=== PATIENT | female | born 1990 | race Two or more races ===

== ENCOUNTER 2020-01-09 07:34 | Emergency (ER) | payer OTHER, SELFPAY ==
--- NOTE | 2020-01-09 | ECG_ITS ---
Test Reason : SOB Blood Pressure : / mmHG Vent. Rate : 069 BPM Atrial Rate : 069 BPM P-R Int : 136 ms QRS Dur : 090 ms QT Int : 412 ms P-R-T Axes : 026 024 -05 degrees QTc Int : 441 ms Normal sinus rhythm Normal ECG When compared with ECG of 01-MAR-2014 09:32, No significant change was found Referred By: Shanell Camp Electronically Signed By:ESTRELLA BARTON
--- NOTE | 2020-01-09 08:01 | ED_ITS ---
HPI - Asthma General Chief Complaint: Asthma Stated Complaint: ASTHMA CHEST PAIN Time Seen by Provider: 01/09/20 08:01 Source: patient Mode of arrival: ambulatory Limitations: no limitations History of Present Illness HPI Narrative: 29 yo female with hx of asthma, anxiety, PCOS - on new medication for infertility c/o chest pain and dyspnea since yesterday, no leg pain, no prior history of this MD complaint: other (chest pain and shortness of breath) Onset (ago): day(s) (yesterday) Severity: moderate Context: other (on new infertility medication) Related Data Previous Rx's Medication Instructions Recorded nicotine 14 mg/24 hr daily 1 patch TRANSDERMAL DAILY 30 Days 01/08/20 transdermal patch #28 ea cyclobenzaprine 10 mg PO TID PRN #14 tab 01/09/20 Allergies Allergy/AdvReac Type Severity Reaction Status Date / Time Penicillins Allergy Mild RASH Verified 01/09/20 08:46 penicillin V Allergy Unknown rash Verified 10/03/19 00:00 Review of Systems Review of Systems: Constitutional : No Weight loss, No Fever, No Chills ENT/Mouth : No sore throat, No Rhinorrhea Eyes: No Eye Pain, No Swelling Cardiovascular : pos Chest Pain, pos SOB, no Dyspnea on Exertion, No Orthopnea, No Edema, No Palpitations Respiratory : No Cough, No Sputum Gastrointestinal : pos Nausea, No Vomiting, No Diarrhea, No abdominal Pain, No Hematochezia, No Melena Genitourinary : No Dysuria, No Urinary Frequency Musculoskeletal : No joint pain, No Myalgias, No Joint Swelling Skin : No Skin Lesions, No rash Neuro : No Weakness, No Numbness, No Dizziness, No Headache Psych : No Anxiety/Panic, No Depression Heme/Lymph: No Bruising, No Lymphadenopathy Endocrine : No Polyuria, No Polydipsia All other systems reviewed and are negative [facility] Past Medical History Medical History (Updated 01/09/20 @ 09:22 by Shanell Camp DO) Anxiety Asthma PCOS (polycystic ovarian syndrome) Social History Social History (Updated 01/09/20 @ 08:07 by Shanell Cmap DO) Alcohol intake: never Smoking Status: Current every day smoker Use of substances other than those prescribed or required for medical reasons: No Advance Directives: No Advance Directives Information Provided: Yes Physical Exam Vital Signs and I&O and Narrative: Vital Signs and I&O: Vital Signs Temp 98.2 F 01/09/20 08:26 Pulse 73 01/09/20 08:26 Resp 16 01/09/20 08:26 BP 108/71 01/09/20 08:26 Pulse Ox 98 01/09/20 08:26 Intake & Output 01/08/20 01/09/20 01/09/20 18:59 06:59 18:59 Weight 90.718 kg Body Mass Index 35.4 Appearance: Alert. Oriented X3. No acute distress. mild anxiety Eyes: Pupils equal, round and reactive to light. ENT: Pharynx normal. Neck: Normal inspection. Neck supple. CVS: Normal heart rate and rhythm. Pulses normal. Respiratory: No respiratory distress. Breath sounds normal. Abdomen: Soft and nontender. Skin: Skin warm and dry. Normal skin color. Normal skin turgor. Extremities: No lower extremity edema. No lower extremity edema. Neuro: Oriented X 3. No motor deficit. No sensory deficit. Course Course Course Narrative: normal EKG, CXR, negative ddimer, negative troponin, stable for DC MDM - Asthma MDM Narrative Medical decision making narrative: 29 yo female with asthma, anxiety, PCOS on new infertility medication here with chest pain and shortness of breath since yesterday, lungs clear, no fevers no cough, will need EKG, CXR, troponin x 1, ddimer - PO ativan for anxiety, dispo per results and findings Lab Data Result diagrams: 01/09/20 08:40 01/09/20 08:40 Labs: Lab Results 01/09/20 01/09/20 01/09/20 Range/Units 08:40 08:40 08:40 WBC 10.9 H (4.8-10.8) X10*3/uL RBC 4.76 (4.20-5.50) X10*6/uL Hgb 14.0 (12.0-16.0) g/dl Hct 40.9 (37-47) % MCV 85.9 (80-98) fL MCH 29.4 (27.0-33.0) pg MCHC 34.2 (31.0-35.0) g/dl RDW 13.5 (11.0-16.0) % Plt Count 226 (160-400) X10*3/uL MPV 11.5 (9.4-12.3) fL Immature Gran % (Auto) 0.3 (0.0-0.4) % Neut % (Auto) 69.8 (45-73) % Lymph % (Auto) 19.2 L (20-40) % Esmeralda % (Auto) 7.2 (2-11) % Eos % (Auto) 3.2 (0-4) % Baso % (Auto) 0.3 (0-2) % Neut # (Auto) 7.6 (2.0-8.3) X10*3/uL Lymph # (Auto) 2.1 (1.2-4.9) X10*3/uL Esmeralda # (Auto) 0.8 (0.1-1.2) X10*3/uL Eos # (Auto) 0.4 (0.0-0.4) X10*3/uL Baso # (Auto) 0.0 (0.0-0.2) X10*3/uL Abs Immat Gran (auto) 0.03 (0.00-0.03) X10*3/uL Absolute Nucleated RBC 0.000 (0.0-0.012) X10*3/uL Nucleated RBC % (auto) 0.0 (0.0-0.2) /100WBC D-Dimer < 200 NG/ML Sodium 139 (135-145) mmol/L Potassium 3.9 (3.3-5.1) mmol/l Chloride 106 (96-108) mmol/L Carbon Dioxide 24 (22-29) mmol/L Anion Gap 13 (12-20) BUN 8 L (9-16) mg/dL Creatinine 0.77 (0.5-1.4) mg/dL Estim Creat Clear Calc 114.2 Estimated GFR > 60 Random Glucose 137 H (60-115) mg/dL Calcium 9.2 (8.4-10.2) mg/dL Magnesium 1.9 (1.6-2.6) mg/dL Total Bilirubin 0.5 (0.0-1.0) mg/dL Direct Bilirubin 0.2 (0.0-0.5) mg/dL AST 30 (5-31) U/L ALT 80 H (0-31) U/L Alkaline Phosphatase 69 (39-117) U/L Troponin I High Sens (<3.5-17.0) ng/L Total Protein 6.3 L (6.5-8.0) g/dL Albumin 4.2 (3.5-5.0) g/dL Lipase 19 (8-78) U/L 01/09/20 Range/Units 08:40 WBC (4.8-10.8) X10*3/uL RBC (4.20-5.50) X10*6/uL Hgb (12.0-16.0) g/dl Hct (37-47) % MCV (80-98) fL MCH (27.0-33.0) pg MCHC (31.0-35.0) g/dl RDW (11.0-16.0) % Plt Count (160-400) X10*3/uL MPV (9.4-12.3) fL Immature Gran % (Auto) (0.0-0.4) % Neut % (Auto) (45-73) % Lymph % (Auto) (20-40) % Esmeralda % (Auto) (2-11) % Eos % (Auto) (0-4) % Baso % (Auto) (0-2) % Neut # (Auto) (2.0-8.3) X10*3/uL Lymph # (Auto) (1.2-4.9) X10*3/uL Esmeralda # (Auto) (0.1-1.2) X10*3/uL Eos # (Auto) (0.0-0.4) X10*3/uL Baso # (Auto) (0.0-0.2) X10*3/uL Abs Immat Gran (auto) (0.00-0.03) X10*3/uL Absolute Nucleated RBC (0.0-0.012) X10*3/uL Nucleated RBC % (auto) (0.0-0.2) /100WBC D-Dimer NG/ML Sodium (135-145) mmol/L Potassium (3.3-5.1) mmol/l Chloride (96-108) mmol/L Carbon Dioxide (22-29) mmol/L Anion Gap (12-20) BUN (9-16) mg/dL Creatinine (0.5-1.4) mg/dL Estim Creat Clear Calc Estimated GFR Random Glucose (60-115) mg/dL Calcium (8.4-10.2) mg/dL Magnesium (1.6-2.6) mg/dL Total Bilirubin (0.0-1.0) mg/dL Direct Bilirubin (0.0-0.5) mg/dL AST (5-31) U/L ALT (0-31) U/L Alkaline Phosphatase (39-117) U/L Troponin I High Sens < 3.5 (<3.5-17.0) ng/L Total Protein (6.5-8.0) g/dL Albumin (3.5-5.0) g/dL Lipase (8-78) U/L ECG Data Attestation: I personally reviewed and interpreted this ECG as follows: ECG interpretation date: 01/09/20 ECG interpretation time: 08:59 Interpretation: Rate: 69 Rhythm: NSR [place]: normal Normal P waves. Normal VALERIA. Normal QRS complex. ST T wave : normal qTC:normal prior studies: none The study has been interpreted contemporaneously by me. . Discharge Plan Discharge Clinical Impression: Chest pain Qualifiers: Chest pain type: unspecified Qualified Code(s): R07.9 - Chest pain, unspecified Patient Disposition: Home, Self-Care Instructions: Chest Pain (ED) Prescriptions: New cyclobenzaprine 10 mg tablet 10 mg PO TID PRN (Reason: muscle spasm) Qty: 14 RF: 0 No Action nicotine [Nicoderm CQ] 14 mg/24 hr patch 24 hour 1 patch transdermal DAILY 30 Days Qty: 28 RF: 1 Referrals: Bethanie Kline MD [Primary Care Provider] - 2 days (if not better) Stand Alone Forms: Work/School Release
--- NOTE | 2020-01-09 08:01 | XR_ITS ---
EXAMINATION: XR CHEST CLINICAL INFORMATION: Chest pain COMPARISON: 03/04/2014 TECHNIQUE: Frontal view of the chest was obtained. FINDINGS: No significant abnormality is noted involving the heart, lungs, mediastinum, bony thorax or soft tissues. IMPRESSION: No acute cardiopulmonary process.
[2020-01-09 08:26] VITALS: BP 108/71; PULSE 73; RESP 16; TEMP 36.8; O2SAT 98; BMI 35.4
[2020-01-09 08:44] LABS: MANUAL DIFF FLAG NO
[2020-01-09 08:47] LABS: Basophils Percent Auto 0.3 % (0-2); Eosinophils Absolute Auto 0.4 X10*3/uL (0.0-0.4); Eosinophils Percent Auto 3.2 % (0-4); Hematocrit 40.9 % (37-47); Imm Gran Abs Auto 0.03 X10*3/uL (0.00-0.03); Imm Gran Pct Auto 0.3 % (0.0-0.4); Lymphocytes Absolute Auto 2.1 X10*3/uL (1.2-4.9); Lymphocytes Percent Auto 19.2 % (20-40); Mean Corpuscular HGB Conc 34.2 g/dl (31.0-35.0); Mean Corpuscular Hemoglobin 29.4 pg (27.0-33.0); Mean Corpuscular Volume 85.9 fL (80-98); Mean Platelet Volume 11.5 fL (9.4-12.3); Monocytes Absolute Auto 0.8 X10*3/uL (0.1-1.2); Monocytes Percent Auto 7.2 % (2-11); Neutrophils Absolute Auto 7.6 X10*3/uL (2.0-8.3); Neutrophils Percent Auto 69.8 % (45-73); Platelet Count 226 X10*3/uL (160-400); Red Blood Count 4.76 X10*6/uL (4.20-5.50); Red Cell Distribution Width 13.5 % (11.0-16.0); White Blood Count 10.9 X10*3/uL (4.8-10.8)
[2020-01-09] MEDS: LORazepam 1 MG TABLET PO (08:47)
[2020-01-09 08:58] LABS: D Dimer < 200 NG/ML
[2020-01-09 09:12] LABS: Alanine Aminotransferase 80 U/L (0-31); Albumin Level 4.2 g/dL (3.5-5.0); Alkaline Phosphatase 69 U/L (39-117); Anion Gap 13 (12-20); Aspartate Amino Transferase 30 U/L (5-31); Bilirubin Direct 0.2 mg/dL (0.0-0.5); Bilirubin Total 0.5 mg/dL (0.0-1.0); Blood Urea Nitrogen 8 mg/dL (9-16); Calcium 9.2 mg/dL (8.4-10.2); Carbon Dioxide 24 mmol/L (22-29); Chloride 106 mmol/L (96-108); Creatinine Clr Calc Pharmacy 114.2; Estimated Glomerular Filt Rate > 60; Glucose Random 137 mg/dL (60-115); Lipase 19 U/L (8-78); Magnesium 1.9 mg/dL (1.6-2.6); Potassium 3.9 mmol/l (3.3-5.1); Sodium 139 mmol/L (135-145); Total Protein 6.3 g/dL (6.5-8.0)
[2020-01-09 09:18] LABS: Troponin-I High Sensitivity < 3.5 ng/L (<3.5-17.0)
== END 2020-01-09 10:17 | disposition home or self-care (01) ==
PROVIDERS: Emergency Provider Emergency Medicine; PCP Internal Medicine
DX: R07.9 Chest pain, unspecified (principal); F41.9 Anxiety disorder, unspecified; F43.0 Acute stress reaction; J45.909 Unspecified asthma, uncomplicated; Z79.899 Other long term (current) drug therapy; F17.200 Nicotine dependence, unspecified, uncomplicated; Z71.6 Tobacco abuse counseling
CPT/HCPCS: 36415; 71045; 80048; 80076; 83690; 83735; 84484; 85025; 85379; 93005; 93010; 99283; 99284

== ENCOUNTER → 2020-04-02 08:27 | Outpatient (BNVA) | payer OTHER, SELFPAY | PROVIDERS: PCP Internal Medicine; Visit Provider Physician Assistant | DX: Z76.89 Persons encountering health services in other specified circumstances (principal) ==

== ENCOUNTER 2020-04-09 14:04 | Outpatient (REF) | payer OTHER, SELFPAY ==
[2020-04-09 16:36] LABS: Basophils Absolute Auto 0.1 X10*3/uL (0.0-0.2); Basophils Percent Auto 0.9 % (0-2); Eosinophils Absolute Auto 0.3 X10*3/uL (0.0-0.4); Hemoglobin 14.7 g/dl (12.0-16.0); Imm Gran Abs Auto 0.03 X10*3/uL (0.00-0.03); Imm Gran Pct Auto 0.4 % (0.0-0.4); Lymphocytes Absolute Auto 2.8 X10*3/uL (1.2-4.9); Lymphocytes Percent Auto 35.5 % (20-40); Mean Corpuscular HGB Conc 33.4 g/dl (31.0-35.0); Mean Corpuscular Hemoglobin 28.5 pg (27.0-33.0); Mean Corpuscular Volume 85.4 fL (80-98); Mean Platelet Volume 12.8 fL (9.4-12.3); Monocytes Absolute Auto 0.5 X10*3/uL (0.1-1.2); Monocytes Percent Auto 6.3 % (2-11); Neutrophils Absolute Auto 4.2 X10*3/uL (2.0-8.3); Neutrophils Percent Auto 52.9 % (45-73); Platelet Count 241 X10*3/uL (160-400); Red Blood Count 5.15 X10*6/uL (4.20-5.50); Red Cell Distribution Width 12.9 % (11.0-16.0)
[2020-04-09 16:38] LABS: MANUAL DIFF FLAG NO
[2020-04-09 16:53] LABS: Alanine Aminotransferase 123 U/L (0-31); Albumin Level 4.5 g/dL (3.5-5.0); Alkaline Phosphatase 72 U/L (39-117); Aspartate Amino Transferase 67 U/L (5-31); Bilirubin Direct 0.2 mg/dL (0.0-0.5); Bilirubin Total 0.3 mg/dL (0.0-1.0); Total Protein 6.9 g/dL (6.5-8.0)
[2020-04-09 17:15] LABS: TSH reflex Free T4 1.18 mIU/mL (0.32-4.0)
[2020-04-09 17:29] LABS: Erythrocyte Sedimentation Rate 2 MM/HR (0-20)
[2020-04-12 16:27] LABS: Vitamin D 25-OH, D2 20 ng/mL; Vitamin D 25-OH, D3 10 ng/mL; Vitamin D 25-OH, Total 30 ng/mL (30-100)
== END 2020-04-09 14:05 | disposition home or self-care (01) ==
LOC: HO.HMGCLDS 14:04
PROVIDERS: PCP Internal Medicine; Visit Provider Internal Medicine
DX: E55.9 Vitamin D deficiency, unspecified (principal); E66.9 Obesity, unspecified; R53.83 Other fatigue
CPT/HCPCS: 36415; 80076; 82306; 84443; 85025; 85652

== ENCOUNTER 2020-04-25 12:38 | Outpatient (REF) | payer OTHER, SELFPAY ==
--- NOTE | 2020-04-25 12:40 | US_ITS ---
EXAMINATION: US ABDOMEN COMPLETE CLINICAL INFORMATION: Elevated LFTs. COMPARISON: CT abdomen and pelvis 07/27/2015 TECHNIQUE: Real-time imaging of the abdominal viscera. FINDINGS: PANCREAS: Normal. ABDOMINAL AORTA: The proximal, mid, and distal segments are normal in caliber. INFERIOR VENA CAVA: Visualized portions are normal. LIVER: Mildly prominent measuring up to 19.3 cm. The liver contour is normal. There is diffuse increased liver parenchymal echogenicity, consistent with hepatic steatosis. Focal fatty sparing adjacent to the gallbladder. No focal hepatic lesion. There is no intrahepatic biliary duct dilatation seen. GALLBLADDER: Normal. The gallbladder is physiologically distended without evidence of stones, sludge, polyps, wall thickening or pericholecystic fluid. COMMON BILE DUCT: Normal in caliber measuring 0.4 cm in diameter. RIGHT KIDNEY: Unremarkable. No hydronephrosis. No renal calculi or focal parenchymal lesions. The kidney measures 11.9 cm in maximum dimension. LEFT KIDNEY: Mildly lobulated contour. No hydronephrosis. No renal calculi or focal parenchymal lesions. The kidney measures 11.7 cm in maximum dimension. SPLEEN: Mildly lobulated contour. The spleen measures 13.4 cm in maximum dimension. FREE FLUID: None. US/US abdomen complete IMPRESSION: Hepatic steatosis with mild hepatomegaly. No hepatic parenchymal lesion or biliary ductal dilatation. Otherwise unremarkable examination.
== END 2020-04-25 12:39 | disposition home or self-care (01) ==
LOC: HO.US 12:38
PROVIDERS: PCP Internal Medicine; Visit Provider Internal Medicine
DX: R79.89 Other specified abnormal findings of blood chemistry (principal)
CPT/HCPCS: 76700

== ENCOUNTER → 2020-04-30 10:41 | Outpatient (BNVA) | payer OTHER, SELFPAY | PROVIDERS: PCP Internal Medicine; Visit Provider Nurse Practitioner Family ==

== ENCOUNTER → 2020-05-02 08:11 | Outpatient (BNVA) | payer OTHER, SELFPAY | PROVIDERS: PCP Internal Medicine; Visit Provider Physician Assistant ==

== ENCOUNTER → 2020-05-14 13:51 | Outpatient (REF) | payer OTHER, SELFPAY | LOC: HO.SL 13:51 | PROVIDERS: PCP Internal Medicine; Visit Provider Nurse Practitioner Family | DX: R06.83 Snoring (principal); G47.9 Sleep disorder, unspecified; E66.9 Obesity, unspecified | CPT/HCPCS: 95806 ==

== ENCOUNTER → 2020-05-15 08:21 | Outpatient (BNVA) | payer OTHER, SELFPAY | PROVIDERS: PCP Internal Medicine; Visit Provider Physician Assistant ==

== ENCOUNTER → 2020-07-09 10:54 | Outpatient (BNVA) | payer OTHER, SELFPAY | PROVIDERS: PCP Internal Medicine; Visit Provider Nurse Practitioner Family ==

== ENCOUNTER 2020-09-16 11:46 | Outpatient (REF) | payer OTHER, SELFPAY ==
--- NOTE | ~2020-09-16 | XR_ITS ---
EXAMINATION: XR CERVICAL SPINE CLINICAL INFORMATION: Neck pain COMPARISON: None TECHNIQUE: 3 views of the cervical spine were obtained. FINDINGS: There are no prevertebral soft tissue or bony abnormalities demonstrated. No compression fractures or subluxations are identified. Alignment is maintained at the atlanto-axial articulation. The disc spaces are preserved. No endplate changes are seen. The prevertebral soft tissues are normal. The foramina are patent. There are bilateral C7 cervical ribs. XR/XR cervical spine 3V IMPRESSION: Bilateral C7 cervical ribs. No visible acute fracture or dislocation.
[2020-09-16 14:27] LABS: Alanine Aminotransferase 59 U/L (0-31); Albumin Level 4.4 g/dL (3.5-5.0); Alkaline Phosphatase 74 U/L (39-117); Anion Gap 14 (12-20); Aspartate Amino Transferase 28 U/L (5-31); Bilirubin Total 0.5 mg/dL (0.0-1.0); Blood Urea Nitrogen 11 mg/dL (9-16); Calcium 9.5 mg/dL (8.4-10.2); Carbon Dioxide 22 mmol/L (22-29); Chloride 109 mmol/L (96-108); Cholesterol 155 mg/dL; Estimated Glomerular Filt Rate > 60; Glucose Fasting 113 mg/dL (60-99); HDL Cholesterol 37 mg/dL; Iron 37 mcg/dL (30-160); LDL Cholesterol Calculated 96 mg/dl; Percent Iron Saturation 10 % (15-50); Potassium 4.5 mmol/L (3.3-5.1); Sodium 140 mmol/L (135-145); Total Iron Binding Capacity 367 mcg/dL (228-428); Total Protein 6.5 g/dL (6.5-8.0); Triglycerides 113 mg/dL; Unsaturated Iron Binding 330 ug/dL
[2020-09-16 14:40] LABS: TSH reflex Free T4 0.88 uIU/mL (0.32-4.0)
[2020-09-16 14:47] LABS: Ferritin 59 ng/mL (10-122)
[2020-09-16 15:17] LABS: Folate 9.7 ng/mL (> or = 4.0); Vitamin B12 366 pg/mL (200-900)
[2020-09-18 13:57] LABS: Transferrin 291 mg/dL (188-341)
[2020-09-20 17:02] LABS: Vitamin D 25-OH, D2 10 ng/mL; Vitamin D 25-OH, D3 22 ng/mL; Vitamin D 25-OH, Total 32 ng/mL (30-100)
== END 2020-09-16 11:47 | disposition home or self-care (01) ==
LOC: HO.HMGCX 11:46
PROVIDERS: PCP Internal Medicine; Visit Provider Nurse Practitioner Family
DX: M54.2 Cervicalgia (principal); G25.81 Restless legs syndrome; R20.2 Paresthesia of skin; E55.9 Vitamin D deficiency, unspecified; E66.9 Obesity, unspecified; F41.9 Anxiety disorder, unspecified; G44.89 Other headache syndrome; J45.40 Moderate persistent asthma, uncomplicated; R12 Heartburn; R42 Dizziness and giddiness; R53.83 Other fatigue; R79.89 Other specified abnormal findings of blood chemistry
CPT/HCPCS: 36415; 72040; 80053; 80061; 82306; 82607; 82728; 82746; 83540; 84443; 84466

== ENCOUNTER → 2020-10-15 09:10 | Outpatient (BNVA) | payer OTHER, SELFPAY | PROVIDERS: PCP Internal Medicine; Visit Provider Nurse Practitioner Family ==

== ENCOUNTER 2020-11-12 14:07 | Emergency (ER) | payer OTHER, SELFPAY ==
--- NOTE | ~2020-11-12 | XR_ITS ---
EXAMINATION: XR CHEST CLINICAL INFORMATION: Shortness of breath COMPARISON: January 09, 2020 TECHNIQUE: 2 views of the chest were obtained. FINDINGS: No significant abnormality is noted involving the heart, lungs, mediastinum, bony thorax or soft tissues. XR/XR chest 2V IMPRESSION: No acute disease.
[2020-11-12 16:16] VITALS: BP 116/71; PULSE 62; RESP 20; TEMP 36.8; O2SAT 95; BMI 35.7
[2020-11-12 17:13] LABS: MANUAL DIFF FLAG NO
[2020-11-12 17:18] LABS: Basophils Absolute Auto 0.1 X10*3/uL (0.0-0.2); Basophils Percent Auto 0.5 % (0-2); Eosinophils Absolute Auto 0.2 X10*3/uL (0.0-0.4); Eosinophils Percent Auto 1.7 % (0-4); Hematocrit 44.4 % (37-47); Hemoglobin 14.9 g/dl (12.0-16.0); Imm Gran Abs Auto 0.04 X10*3/uL (0.00-0.03); Imm Gran Pct Auto 0.4 % (0.0-0.4); Lymphocytes Absolute Auto 1.2 X10*3/uL (1.2-4.9); Lymphocytes Percent Auto 12.2 % (20-40); Mean Corpuscular HGB Conc 33.6 g/dl (31.0-35.0); Mean Corpuscular Hemoglobin 28.2 pg (27.0-33.0); Mean Corpuscular Volume 84.1 fL (80-98); Mean Platelet Volume 12.3 fL (9.4-12.3); Monocytes Absolute Auto 0.3 X10*3/uL (0.1-1.2); Monocytes Percent Auto 2.8 % (2-11); Neutrophils Absolute Auto 8.3 X10*3/uL (2.0-8.3); Neutrophils Percent Auto 82.4 % (45-73); Platelet Count 248 X10*3/uL (160-400); Red Blood Count 5.28 X10*6/uL (4.20-5.50); Red Cell Distribution Width 13.6 % (11.0-16.0); White Blood Count 10.1 X10*3/uL (4.8-10.8)
[2020-11-12 17:55] LABS: Anion Gap 13 (12-20); Blood Urea Nitrogen 6 mg/dL (9-16); Carbon Dioxide 25 mmol/L (22-29); Chloride 106 mmol/L (96-108); Creatinine Clr Calc Pharmacy 109.5; Estimated Glomerular Filt Rate > 60; Glucose Random 135 mg/dL (60-115); Potassium 4.7 mmol/L (3.3-5.1); Sodium 139 mmol/L (135-145)
[2020-11-12 20:00] VITALS: BP 107/72; PULSE 77; RESP 16; TEMP 37.1; O2SAT 95
--- NOTE | 2020-11-12 20:14 | ED_ITS ---
HPI - Asthma General Chief Complaint: Asthma Stated Complaint: asthma Time Seen by Provider: 11/12/20 20:13 Source: patient Mode of arrival: ambulatory Limitations: no limitations History of Present Illness HPI Narrative: 30-year-old female came in for evaluation for asthma exacerbation. Patient's symptoms started 2 days ago after she was exposed to her sign with a minor upper respiratory symptoms, patient seen yesterday at an urgent care and she was prescribed a course of prednisone, patient stated that she has been having increase in productive cough with clear sputum. Patient is a smoker, no antibiotic. Patient decline repeat testing for COVID/flu/RSV patient was just tested yesterday at the urgent care, patient also has been vaccinated with COVID, patient will find out about her test tomorrow. Related Data Previous Rx's Medication Instructions Recorded cyclobenzaprine 10 mg tablet 10 mg PO TID PRN #14 tab 01/09/20 albuterol sulfate 90 mcg/actuation 2 puff INHALATION Q6H PRN 30 Days 03/26/20 aerosol inhaler (ProAir HFA) #18 g omeprazole 20 mg capsule,delayed 20 mg PO DAILY 90 Days #90 cap 04/09/20 release buspirone 5 mg tablet 5 mg PO BID #60 tab 04/25/20 fluticasone furoate 200 1 inh INHALATION DAILY 30 Days #28 09/11/20 mcg-vilanterol 25 mcg/dose ea inhalation powder (Breo Ellipta) ascorbic acid (vitamin C) 250 mg 250 mg PO DAILY 30 Days #30 tab 09/17/20 tablet docusate sodium 100 mg capsule 100 mg PO BID PRN 30 Days #60 cap 09/17/20 (Colace) ferrous sulfate 325 mg (65 mg 325 mg PO DAILY 30 Days #30 tab 09/17/20 iron) tablet (Feosol) ProAir HFA 90 mcg/actuation 1 inh INHALATION QID PRN 30 Days 10/11/20 aerosol inhaler (albuterol sulfate) #8.5 g NS cholecalciferol (vitamin D3) 25 25 mcg PO DAILY 90 Days #90 cap 10/31/20 mcg (1,000 unit) capsule albuterol sulfate 2.5 mg INHALATION QID PRN #75 ml 11/12/20 azithromycin 250 mg tablet See Rx Instructions .ROUTE 11/12/20 (Zithromax Z-Bryan) .COMPLEX #6 tab Allergies Allergy/AdvReac Type Severity Reaction Status Date / Time Penicillins Allergy Mild RASH Verified 09/11/20 14:48 penicillin V Allergy Unknown rash Verified 09/11/20 14:48 Review of Systems Review of Systems: All other systems are reviewed and are negative Constitutional: Reports as per HPI and Reports no additional constitutional complaints Eyes: Reports as per HPI and Reports no additional eye complaints Reports system reviewed and no additional complaints, except as documented Cardiovascular: Reports as per HPI and Reports no additional cardiovascular complaints Respiratory: Reports as per HPI and Reports no additional respiratory complaints Gastrointestinal: Reports as per HPI and Reports no additional gastrointestinal complaints Genitourinary: Reports no additional female genitourinary complaints Musculoskeletal: Reports no additional musculoskeletal complaints Skin/Breast: Reports system reviewed and no additional complaints, except as docu Psychiatric: Reports no additional psychiatric complaints Endocrine: Reports no additional endocrine complaints Hematologic/Lymphatic: Reports no additional hematologic/lymphatic complaints Allergic/Immunologic: Reports no additional allergic/immunologic complaints Reports system reviewed and no additional complaints, except as documented and Reports Abnormal speech present [facility] Past Medical History Medical History Anxiety Asthma BMI 35.0-35.9,adult Obesity PCOS (polycystic ovarian syndrome) Tired Umbilical hernia Vitamin D deficiency Surgical History H/O cervical polypectomy No pertinent past surgical history Family History Family History Father Unknown family medical history Mother Internal bleeding Maternal Grandmother No problems noted. Maternal Grandfather No problems noted. Paternal Grandfather No problems noted. Paternal Grandmother No problems noted. Sister Cervical cancer Social History Social History Alcohol intake: current Alcohol intake frequency: does not drink Cigarettes Per Day: 11 Years Smoked: 10 Advance Directives: No Advance Directives Information Provided: Yes Patient : No Physical Exam Vital Signs: Vital Signs: Last Vital Signs Temp 98.2 F 11/12/20 16:16 Pulse 62 11/12/20 16:16 Resp 20 11/12/20 16:16 BP 116/71 11/12/20 16:16 Pulse Ox 95 11/12/20 16:16 Body Mass Index 35.7 Vital signs have been reviewed as appeared to be correct. Blood pressure normal. Heart rate normal. Respiration rate normal. Temperature normal. Oxygen saturation normal. Appearance: Alert. Oriented X3. No acute distress. Head: Normal external exam. Normocephalic. Atraumatic. No Jesus signs noted. No raccoon eyes noted Eyes: PERRLA. EOMI. Conjunctiva and sclera normal. Eyelids normal. ENT: TM's Normal. Pharynx normal. Uvula midline. Moist mucous membranes. No trismus noted. No drooling noted. No muffled voice noted. Neck: Normal inspection. Neck supple. FROM. No adenopathy. Thyroid Normal. No meningeal signs. No neck mass noted. CVS: Normal heart rate and rhythm. Heart sound normal. No murmurs noted. Pulses normal throughout. Respiratory: No respiratory distress. Painless inspiration. Breath sounds normal. Mild diffuse expiratory wheezing, prolonged inspiration, nontender. No accessory muscle usage noted or decreased air movement noted. Abdomen: Soft and nontender. Bowel sounds normal in all 4 quadrants. No distention noted. No organomegaly noted. No visible injury noted. Back: No CVA tenderness. Full range of motion noted. Skin: Skin warm and dry. Normal skin color. Normal skin turgor. No rashes/lesions/lacerations noted. Extremities: No lower extremity edema. Extremities exhibit normal range of motion. Extremities nontender. Neuro: Oriented X 3. Cranial nerve exam: II-XII are grossly intact No motor deficit. No sensory deficit. Reflexes normal. Course Course Course Narrative: 30-year-old female history of asthma, here today for not improving despite using bronchodilator, patient was just started today on prednisone, patient documented increase productive green sputum and patient is a smoker. With Ricardo yusuf, to the prednisone and albuterol and follow up with PCP. MDM - Asthma Lab Data Attestation: I reviewed the patient's lab results. Result diagrams: 11/12/20 17:05 11/12/20 17:04 Labs: Lab Results 11/12/20 11/12/20 Range/Units 17:04 17:05 WBC 10.1 (4.8-10.8) X10*3/uL RBC 5.28 (4.20-5.50) X10*6/uL Hgb 14.9 (12.0-16.0) g/dl Hct 44.4 (37-47) % MCV 84.1 (80-98) fL MCH 28.2 (27.0-33.0) pg MCHC 33.6 (31.0-35.0) g/dl RDW 13.6 (11.0-16.0) % Plt Count 248 (160-400) X10*3/uL MPV 12.3 (9.4-12.3) fL Immature Gran % (Auto) 0.4 (0.0-0.4) % Neut % (Auto) 82.4 H (45-73) % Lymph % (Auto) 12.2 L (20-40) % Love % (Auto) 2.8 (2-11) % Eos % (Auto) 1.7 (0-4) % Baso % (Auto) 0.5 (0-2) % Lymph # (Auto) 1.2 (1.2-4.9) X10*3/uL Love # (Auto) 0.3 (0.1-1.2) X10*3/uL Eos # (Auto) 0.2 (0.0-0.4) X10*3/uL Baso # (Auto) 0.1 (0.0-0.2) X10*3/uL Abs Immat Gran (auto) 0.04 H (0.00-0.03) X10*3/uL Absolute Neuts (auto) 8.3 (2.0-8.3) X10*3/uL Absolute Nucleated RBC 0.000 (0.0-0.012) X10*3/uL Nucleated RBC % (auto) 0.0 (0.0-0.2) /100WBC Sodium 139 (135-145) mmol/L Potassium 4.7 (3.3-5.1) mmol/L Chloride 106 (96-108) mmol/L Carbon Dioxide 25 (22-29) mmol/L Anion Gap 13 (12-20) BUN 6 L (9-16) mg/dL Creatinine 0.80 (0.5-1.4) mg/dL Estim Creat Clear Calc 109.5 Estimated GFR > 60 Random Glucose 135 H (60-115) mg/dL Calcium 10.0 (8.4-10.2) mg/dL Imaging Data Chest x-ray: Radiologist's impression: No acute disease. Discharge Plan Discharge Clinical Impression: Asthma exacerbation Qualifiers: Asthma severity: moderate Asthma persistence: unspecified Qualified Code(s): J45.901 - Unspecified asthma with (acute) exacerbation Patient Disposition: Home, Self-Care Instructions: Bronchospasm (ED) Prescriptions: New azithromycin [Zithromax Z-Bryan] 250 mg tablet See Rx Instructions .ROUTE .COMPLEX Qty: 6 RF: 0 albuterol sulfate 2.5 mg /3 mL (0.083 %) solution for nebulization 2.5 mg inhalation QID PRN (Reason: shortness of breath or wheezing) Qty: 75 RF: 0 No Action albuterol sulfate [ProAir HFA] 90 mcg/actuation HFA aerosol inhaler 2 puff inhalation Q6H PRN (Reason: bronchospasm) 30 Days Qty: 18 RF: 0 buspirone 5 mg tablet 5 mg PO BID Qty: 60 RF: 2 ferrous sulfate [Feosol] 325 mg (65 mg iron) tablet 325 mg PO DAILY 30 Days Qty: 30 RF: 1 ascorbic acid (vitamin C) 250 mg tablet 250 mg PO DAILY 30 Days Qty: 30 RF: 1 docusate sodium [Colace] 100 mg capsule 100 mg PO BID PRN (Reason: constipation) 30 Days Qty: 60 RF: 1 albuterol sulfate [ProAir HFA] 90 mcg/actuation HFA aerosol inhaler 1 inh inhalation QID PRN (Reason: shortness of breath or wheezing) 30 Days Qty: 8.5 RF: 5 cholecalciferol (vitamin D3) 25 mcg (1,000 unit) capsule 25 mcg PO DAILY 90 Days Qty: 90 RF: 0 cyclobenzaprine 10 mg tablet 10 mg PO TID PRN (Reason: muscle spasm) Qty: 14 RF: 0 omeprazole 20 mg capsule,delayed release(DR/EC) 20 mg PO DAILY 90 Days Qty: 90 RF: 0 Breo Ellipta 200-25 mcg/dose blister with device 1 inh inhalation DAILY 30 Days Qty: 28 RF: 0 Referrals: Bethanie Kline MD [Primary Care Provider] - 2 days
[2020-11-12] MEDS: Albuterol Sulfate 90 MCG 8 GM INHALER 2 PUFF INHALE (20:26)
== END 2020-11-12 20:41 | disposition home or self-care (01) ==
PROVIDERS: Emergency Provider Emergency Medicine; PCP Internal Medicine
DX: J45.901 Unspecified asthma with (acute) exacerbation (principal); E66.9 Obesity, unspecified; Z68.35 Body mass index [BMI] 35.0-35.9, adult; F17.210 Nicotine dependence, cigarettes, uncomplicated
CPT/HCPCS: 36415; 71046; 80048; 85025; 99284

== ENCOUNTER 2021-03-25 14:19 | Outpatient (REF) | payer OTHER, SELFPAY ==
--- NOTE | ~2021-03-25 | XR_ITS ---
EXAMINATION: XR HAND, LEFT CLINICAL INFORMATION: Localized swelling. Mass and lump. COMPARISON: None TECHNIQUE: PA, lateral, and oblique views of the left hand. FINDINGS: The bones and soft tissues are normal. No fracture. Alignment is anatomic. Joint spaces are maintained. No erosions or soft tissue calcifications. XR/XR hand LT min 3V IMPRESSION: Normal left hand.
== END 2021-03-25 14:20 | disposition home or self-care (01) ==
LOC: HO.HMGCX 14:19
PROVIDERS: PCP Internal Medicine; Visit Provider Internal Medicine
DX: R22.30 Localized swelling, mass and lump, unspecified upper limb (principal)
CPT/HCPCS: 73130

== ENCOUNTER 2021-07-30 14:25 | Outpatient (REF) | payer OTHER, SELFPAY ==
[2021-07-30 16:57] LABS: Glucose Fasting 104 mg/dL (60-99)
[2021-07-30 17:08] LABS: Estimated Average Glucose 134 mg/dL; Hemoglobin A1c % 6.3 %
[2021-07-30 17:27] LABS: Vitamin B12 317 pg/mL (200-900)
== END 2021-07-30 14:26 | disposition home or self-care (01) ==
LOC: HO.HMGCLDS 14:25
PROVIDERS: PCP Internal Medicine; Visit Provider Internal Medicine
DX: R73.9 Hyperglycemia, unspecified (principal); E55.9 Vitamin D deficiency, unspecified; E66.9 Obesity, unspecified; F41.9 Anxiety disorder, unspecified; R12 Heartburn; R42 Dizziness and giddiness; R53.83 Other fatigue
CPT/HCPCS: 36415; 82607; 82947; 83036

== ENCOUNTER 2021-07-30 16:04 | Outpatient (REF) | payer OTHER, SELFPAY ==
[2021-07-31 05:14] LABS: CT PCR NOT DETECTED (Not Detect.); NG PCR NOT DETECTED (Not Detect.)
[2021-07-31 15:49] LABS: BV Int Neg Control Negative (Negative); BV Int Pos Control Positive (Positive)
[2021-08-02 14:45] LABS: HPV mRNA E6/E7 rflx Not Detected (Not Detected)
== END 2021-07-30 16:05 | disposition home or self-care (01) ==
LOC: HO.LAB 16:04
PROVIDERS: Visit Provider Advanced Practice Midwife
DX: Z01.419 Encounter for gynecological examination (general) (routine) without abnormal findings (principal); Z11.51 Encounter for screening for human papillomavirus (HPV)
CPT/HCPCS: 87480; 87491; 87510; 87591; 87624; 87660; 88142

== ENCOUNTER 2022-04-23 09:18 | Outpatient (REF) | payer MEDICAID, SELFPAY ==
[2022-04-23 11:17] LABS: MANUAL DIFF FLAG NO
[2022-04-23 11:22] LABS: Basophils Absolute Auto 0.1 X10*3/uL (0.0-0.2); Basophils Percent Auto 0.6 % (0-2); Eosinophils Absolute Auto 0.4 X10*3/uL (0.0-0.4); Eosinophils Percent Auto 4.1 % (0-4); Hematocrit 44.1 % (37.0-47.0); Hemoglobin 15.1 g/dl (12.0-16.0); Imm Gran Abs Auto 0.02 X10*3/uL (0.00-0.03); Imm Gran Pct Auto 0.2 % (0.0-0.4); Lymphocytes Absolute Auto 2.6 X10*3/uL (1.2-4.9); Lymphocytes Percent Auto 31.1 % (20-40); Mean Corpuscular HGB Conc 34.2 g/dl (31.0-35.0); Mean Corpuscular Volume 87.5 fL (80.0-98.0); Mean Platelet Volume 12.5 fL (9.4-12.3); Monocytes Absolute Auto 0.6 X10*3/uL (0.1-1.2); Monocytes Percent Auto 6.6 % (2-11); Neutrophils Absolute Auto 4.8 x10*3/uL (2.0-8.3); Neutrophils Percent Auto 57.4 % (45-73); Platelet Count 274 X10*3/uL (160-400); Red Blood Count 5.04 X10*6/uL (4.20-5.50); Red Cell Distribution Width 14.2 % (11.0-16.0); White Blood Count 8.5 X10*3/uL (4.8-10.8)
[2022-04-23 11:44] LABS: Alanine Aminotransferase 62 U/L (0-31); Albumin Level 4.2 g/dL (3.5-5.0); Alkaline Phosphatase 71 U/L (39-117); Anion Gap 13 (12-20); Aspartate Amino Transferase 25 U/L (5-31); Bilirubin Total 0.7 mg/dL (0.0-1.0); Blood Urea Nitrogen 11 mg/dL (9-16); Calcium 9.5 mg/dL (8.4-10.2); Carbon Dioxide 24 mmol/L (22-29); Chloride 104 mmol/L (96-108); Estimated Glomerular Filt Rate > 60; Glucose Random 141 mg/dL (60-115); Potassium 4.2 mmol/L (3.3-5.1); Sodium 137 mmol/L (135-145); Total Protein 6.7 g/dL (6.5-8.0)
[2022-04-23 11:48] LABS: Estimated Average Glucose 126 mg/dL
[2022-04-23 12:00] LABS: TSH reflex Free T4 1.39 uIU/mL (0.32-4.0)
[2022-04-23 12:08] LABS: HBS Num1 2.72 mIU/mL (0-7.99); HBc Num1 0.08 S/CO (0.00-0.79); HBsAGNum1 0.26 S/CO (0.00-0.99); HIV AB/AG Nonreactive (Nonreactive); HIV Num 1 0.05 S/CO (0.00-0.99); Hepatitis A Antibody IgM 0.16 Index (0-0.79); Hepatitis B Core Antibody Nonreactive (Nonreactive); Hepatitis B Surface Antigen Negative (Negative); ~HepC Num1 0.06 S/CO (0.00-0.79); ~Hepatitis A Antibody IgM Nonreactive (Nonreactive); ~Hepatitis B Surface Antibody NONREACTIVE (Nonreactive); ~Hepatitis C Antibody Nonreactive (Nonreactive)
[2022-04-23 12:09] LABS: Syphilis Screen Nonreactive (Nonreactive)
[2022-04-23 12:14] LABS: Vitamin B12 329 pg/mL (200-900)
[2022-04-24 08:54] LABS: Herpes Simplex Type 1 IgG <0.90 index; Herpes Simplex Type 2 IgG 7.47 index
== END 2022-04-23 09:19 | disposition home or self-care (01) ==
LOC: HO.HMGCLDS 09:18
PROVIDERS: PCP Internal Medicine; Visit Provider Internal Medicine
DX: Z11.4 Encounter for screening for human immunodeficiency virus [HIV] (principal); Z11.3 Encounter for screening for infections with a predominantly sexual mode of transmission; R23.3 Spontaneous ecchymoses; G44.89 Other headache syndrome; J45.40 Moderate persistent asthma, uncomplicated; R20.2 Paresthesia of skin; E11.65 Type 2 diabetes mellitus with hyperglycemia
CPT/HCPCS: 36415; 80053; 82607; 83036; 84443; 85025; 86695; 86696; 86704; 86706; 86709; 86780; 86803; 87340; 87389

== ENCOUNTER 2023-08-11 08:56 | Outpatient (AMB) | payer OTHER, SELFPAY ==
[2023-08-11 09:00] VITALS: BP 122/76; PULSE 72; O2SAT 97; BMI 33.5
--- NOTE | 2023-08-11 09:00 | MHC.PC.OV ---
Vital Signs 08/11/23 09:00 Height 5 ft 3 in Weight 189 lb 6 oz BMI 33.5 BP 122/76 Blood Pressure Location Rt brachial Position Sitting Pulse 72 Pulse Source Pulse Oximeter Pulse Oximetry (%) 97 Oxygen Delivery Method Room Air Intake Visit Reasons: Annual PE Is last menstrual period known: Yes Last menstrual period: 07/11/23 Allergies penicillin V Allergy (Unknown, Verified 08/11/23 09:02) rash Medication List - Last Reconciled 08/11/23 by Bethanie Kline MD ascorbic acid (vitamin C) 250 mg PO DAILY 30 days blood sugar diagnostic ([employer] Ultra Test strips) Once a day blood-glucose meter ([employer] Ultra2 Meter) Once a day cholecalciferol (vitamin D3) 25 mcg PO DAILY 90 days fluticasone furoate-vilanterol 200-25 mcg/dose (Breo Ellipta) 1 inh inhalation DAILY 30 days lancets ([employer] Delica Lancets) Once a day metformin 500 mg PO DAILY omeprazole 20 mg PO DAILY 90 days Symbicort 160-4.5 mcg/actuation (budesonide-formoterol) 2 puffs inhalation BID 30 days NS Tobacco use date assessed: 08/11/23 Dental Screening Dental Screen Date: 08/11/23 Did you have a dental visit in the last 12 months?: No Did you have a dental problem in the last 6 months where you did not have access to dental care?: No Was dental information given to patient?: Patient has dentist HPI Annual PE HPI Details Patient is a 33-year-old female came in today after over 1 year of being seen Patient is diabetic currently taking metformin She is due for labs Patient is also due for breast exam and Pap smear, which she usually gets through OBGYN She has an appointment coming up next month Patient says that last summer she fell on her right knee and it is still painful to go up the stairs I have placed a referral to orthopedic and x-ray order also placed as a baseline Patient had COVID couple of years ago and since then she has been having difficulty smelling Also tells me that she can not breathe from her nose. On examination I also see that she has large tonsils She tells me that she has difficulty swallowing sometimes She will be evaluated by ENT specialist For her nose I have sent Flonase nasal spray and prednisone 20 mg to be taken once a day for 7 days Labs to be done today We will book a follow-up appointment in 3 weeks for difficulty smelling PFSH Medical History REMI II (cervical intraepithelial neoplasia II) REMI I (cervical intraepithelial neoplasia I) BMI 35.0-35.9,adult Umbilical hernia Obesity Tired Vitamin D deficiency Asthma PCOS (polycystic ovarian syndrome) Anxiety Surgical History H/O cervical polypectomy No pertinent past surgical history Family History Father Unknown family medical history Mother Internal bleeding Maternal Grandmother Colon cancer Maternal Grandfather Colon cancer Paternal Grandfather No problems noted. Paternal Grandmother No problems noted. Sister Cervical cancer Other Mental health disorder Substance use disorder Social History Housing: Apartment Alcohol intake: unknown Patient Tobacco Use Status: Current everyday Tobacco user Cigarettes Per Day: 6 Years Smoked: 10 e-Cigarette/Vaping Use: Never Used service: No Current occupational status: employed Cognitive needs: No Hearing needs: No Vision needs: Yes Female Reproductive History Menstrual Age of Menarche: 10 Date of last menstrual period: 07/11/23 Questionnaire PHQ-9 Over the last 2 weeks, how often have you been bothered by any of the following problems? 1. Little interest or pleasure in doing things: more than half the days 2. Feeling down, depressed, or hopeless: nearly every day 3. Trouble falling or staying asleep, or sleeping too much: more than half the days 4. Feeling tired or having little energy: more than half the days 5. Poor appetite or overeating: more than half the days 6. Feeling bad about yourself - or that you are a failure or have let yourself or your family down: more than half the days 7. Trouble concentrating on things, such as reading the newspaper or watching television: more than half the days 8. Moving or speaking so slowly that other people could have noticed. Or the opposite - being so fidgety or restless that you have been moving around a lot more than usual: several days 9. Thoughts that you would be better off or of hurting yourself in some way: not at all Total score: 16 Depression Screening Interpretation: Positive Depression Screening Follow-up: Community Mental Health Worker F/U Depression Screening Done: Yes 04692 - PHQ-9 Billing: Yes Source: Developed by Drs. Olivier Barbosa, Mary Purcell, Sandor Fair and colleagues, with an educational lamont from [employer]. Thrive Questionnaire Date Thrive assessed: 08/11/23 I am a: Patient What is your living situation today?: I have a steady place to live Within the past 12 months, did the food you bought not last and you didn't have the money to get more?: Sometimes True Within the past 12 months, did you worry whether your food would run out before you got money to buy more?: Sometimes True Do you have trouble paying for medicines?: No Do you have trouble getting transportation to medical appointments?: No Do you have trouble paying your heating and electricity bill?: No Do you have trouble taking care of your child, family member or friend?: No Do you have trouble with day-to-day activities such as bathing, preparing meals, shopping, managing finances, etc.?: No Are you currently unemployed and looking for a job?: No Are you interested in more education?: No Please select the resources that you would like help with: None Currently or been in a relationship where the following occur: no concerns reported THRIVE Score: 2 AUDIT C Alcohol Use Questionnaire (AUDIT-C) 1. How often do you have a drink containing alcohol?: Monthly or less 2. How many drinks containing alcohol do you have on a typical day when you are drinking?: 3 or 4 3. How often do you have six or more drinks on one occasion?: Less than monthly Total Score: 3 Score Reviewed/Action Taken: Yes MAURICIO-7 AMB Questionnaire MAURICIO-7 Date MAURICIO - 7 assessed: 08/11/23 Feeling nervous, anxious, or on edge: 3 = Nearly every day Not being able to stop or control worryin = Nearly every day Worrying too much about different things: 3 = Nearly every day Trouble relaxin = Nearly every day Being so restless that it is hard to sit still: 3 = Nearly every day Becoming easily annoyed or irritable: 3 = Nearly every day Feeling afraid as if something awful might happen: 3 = Nearly every day Total MAURICIO-7 score (0-4 normal; 5-9 mild; 10-14 moderate; 15-21 severe): 21 Source: Developed by Drs. Olivier Barbosa, Mary Purcell, Sandor Fair and colleagues, with an educational lamont from [employer]. MAURICIO-7 Assessment Billing MAURICIO-7 Assessment Tool: MAURICIO-7 Assessment 74053 Review of Systems Const Denies chills, Denies fever(s) and Denies headache(s) Eyes Denies blurry vision ENT Denies headache(s), Denies nasal discharge, Denies odynophagia and Denies sinus pain Card Denies chest pain at rest and Denies chest pain with activity Resp Denies cough and Denies hemoptysis GI Denies diarrhea, Denies odynophagia, Denies vomiting and Denies hematemesis Reports as per HPI Musc Denies abnormal gait Skin/Breast Reports as per HPI Neuro Denies Neuro-related abnormal movements, Denies Abnormal speech present, Denies abnormal gait, Denies headache(s) and Denies Sensory deficit (Neuro) Psych Denies mood swings and Denies paranoia Endo Reports as per HPI Justus/Lymph Reports as per HPI Aller/Immun Reports as per HPI Physical exam (Primary Care) Vital Signs: Last Vital Signs Pulse 72 08/11/23 09:00 BP 122/76 08/11/23 09:00 Pulse Ox 97 08/11/23 09:00 Oxygen Delivery Method Room Air 08/11/23 09:00 BMI result Body Mass Index 33.5 Tobacco/Smoking Status: Tobacco use Status Tobacco use date assessed 08/11/23 08/11/23 09:05 Patient Tobacco Use Status Current everyday Tobacco 08/11/23 09:05 e-Cigarette/Vaping Use Never Used 08/11/23 09:05 PHQ-9: PHQ-9 Score PHQ-9: Total score 16 08/11/23 09:31 Depression Screening Interpretation: Positive Depression Screening Follow-up: Community Mental Health Worker F/U Thrive Assessment: Date of Thrive Assessment Date Thrive assessed 08/11/23 08/11/23 09:05 Currently or been in a relationship where the following occur: no concerns reported Const General: cooperative, comfortable and no acute distress Orientation/consciousness: patient oriented x3 HENHI Other: Enlarged tonsils both sides Head: Yes normocephalic and Yes atraumatic Eyes General: appearance normal, both eyes and all related structures Pupils: Equal, round and reactive pupils present EOM: EOMs intact bilaterally Neck Neck: Yes supple and No lymphadenopathy Thyroid: Thyroid normal Lymphatic: no lymphadenopathy noted Resp Effort & Inspection: normal respiratory effort and able to speak in complete sentences Auscultation: clear to auscultation bilaterally Cardio Heart sounds: S1 normal heart sound present and S2 normal heart sound present GI Palpation (GI): Soft to palpation and nontender Auscultation: normal bowel sounds General: Yes no CVA tenderness Back/Spine/Pelvis Back: no CVA tenderness Skin General skin exam: elasticity normal and turgor normal Neuro General: patient oriented x3 and gait normal Cranial nerves: Yes Equal, round and reactive pupils present Speech: No Abnormal speech present Sensory Exam: No Sensory deficit (Neuro) Coordination: tandem gait normal and Romberg test negative Extrem General: Yes normal exam except as noted and No edema Assessment and Plan Assessment & Plan (1) Encounter for general adult medical examination with abnormal findings: Code(s): Z00.01 - Encounter for general adult medical examination with abnormal findings (2) LFT elevation: Code(s): R79.89 - Other specified abnormal findings of blood chemistry (3) Asthma, moderate persistent: Code(s): J45.40 - Moderate persistent asthma, uncomplicated Qualifiers: Asthma complication type: uncomplicated Qualified Code(s): J45.40 - Moderate persistent asthma, uncomplicated (4) Diabetes mellitus: Code(s): E11.9 - Type 2 diabetes mellitus without complications Qualifiers: Diabetes mellitus complication status: without complication Diabetes mellitus exterminator termite insulin use: without custodial use Diabetes mellitus type: type 2 Qualified Code(s): E11.9 - Type 2 diabetes mellitus without complications (5) Right knee injury: Code(s): S89.91XA - Unspecified injury of right lower leg, initial encounter Qualifiers: Encounter type: sequela Qualified Code(s): S89.91XS - Unspecified injury of right lower leg, sequela (6) Knee pain: Code(s): M25.569 - Pain in unspecified knee Qualifiers: Chronicity: chronic Laterality: right Qualified Code(s): M25.561 - Pain in right knee; G89.29 - Other chronic pain (7) Enlarged tonsils: Code(s): J35.1 - Hypertrophy of tonsils (8) Difficulty swallowing: Code(s): R13.10 - Dysphagia, unspecified Qualifiers: Dysphagia type: oropharyngeal phase Qualified Code(s): R13.12 - Dysphagia, oropharyngeal phase Plan Patient is a 33-year-old female came in today after over 1 year of being seen Patient is diabetic currently taking metformin She is due for labs Patient is also due for breast exam and Pap smear, which she usually gets through OBGYN She has an appointment coming up next month Patient says that last summer she fell on her right knee and it is still painful to go up the stairs I have placed a referral to orthopedic and x-ray order also placed as a baseline Patient had COVID couple of years ago and since then she has been having difficulty smelling Also tells me that she can not breathe from her nose. On examination I also see that she has large tonsils She tells me that she has difficulty swallowing sometimes She will be evaluated by ENT specialist For her nose I have sent Flonase nasal spray and prednisone 20 mg to be taken once a day for 7 days Asthma is stable Labs to be done today We will book a follow-up appointment in 3 weeks for difficulty smelling She tells me that June of last year she had difficulty feeling her body below her waist, she went to [facility] Emergency room, some imaging was done however she never came here to follow-up. I will retrieve that record and review, we will address that further at upcoming appointment Orders: Orders Hemoglobin A1c Today E11.9 - Type 2 diabetes mellitus without complications, J45.40 - Moderate persistent asthma, uncomplicated, R79.89 - Other specified abnormal findings of blood chemistry, Z00.01 - Encounter for general adult medical examination with abnormal findings LDL Cholesterol Direct Today E11.9 - Type 2 diabetes mellitus without complications, J45.40 - Moderate persistent asthma, uncomplicated, R79.89 - Other specified abnormal findings of blood chemistry, Z00.01 - Encounter for general adult medical examination with abnormal findings Microalbumin, Random (w Creat) Today E11.9 - Type 2 diabetes mellitus without complications, J45.40 - Moderate persistent asthma, uncomplicated, R79.89 - Other specified abnormal findings of blood chemistry, Z00.01 - Encounter for general adult medical examination with abnormal findings Complete Blood Count Auto Diff Today E11.9 - Type 2 diabetes mellitus without complications, J45.40 - Moderate persistent asthma, uncomplicated, R79.89 - Other specified abnormal findings of blood chemistry, Z00.01 - Encounter for general adult medical examination with abnormal findings Comprehensive Met. Panel Today E11.9 - Type 2 diabetes mellitus without complications, J45.40 - Moderate persistent asthma, uncomplicated, R79.89 - Other specified abnormal findings of blood chemistry, Z00.01 - Encounter for general adult medical examination with abnormal findings Referrals Ear/Nose/Throat Referral J35.1 - Hypertrophy of tonsils, R13.10 - Dysphagia, unspecified Orthopedics Referral M25.569 - Pain in unspecified knee, S89.91XA - Unspecified injury of right lower leg, initial encounter Medications: New prednisone 20 mg PO DAILY 7 tabs 0RF 7 days fluticasone propionate 50 mcg/actuation (Flonase Allergy Relief) administer into each nostril 1 spray intranasal DAILY 16 grams 0RF Coding Level of Care Code Est Pt Level 4 (10028) Est Pt Prev Care 18-39y(80193) Diagnoses Encounter for general adult medical examination with abnormal findings Z00.01 LFT elevation R79.89 Moderate persistent asthma without complication J45.40 Asthma complication type: uncomplicated Type 2 diabetes mellitus without complication, without long-term current use of insulin E11.9 Diabetes mellitus complication status: without complication Diabetes mellitus custodial insulin use: without exterminator termite use Diabetes mellitus type: type 2 Injury of right knee, sequela S89.91XS Encounter type: sequela Chronic pain of right knee M25.561; G89.29 Chronicity: chronic Laterality: right Enlarged tonsils J35.1 Oropharyngeal dysphagia R13.12 Dysphagia type: oropharyngeal phase Additional Codes MAURICIO-7 Assessment Billing - MAURICIO-7 Assessment Tool: MAURICIO-7 Assessment 09993 ([id number])
== END 2023-08-11 09:27 | disposition home or self-care (01) ==
PROVIDERS: PCP Internal Medicine; Visit Provider Internal Medicine
DX: Z00.01 Encounter for general adult medical examination with abnormal findings (principal); E11.9 Type 2 diabetes mellitus without complications; R79.89 Other specified abnormal findings of blood chemistry; J45.40 Moderate persistent asthma, uncomplicated; M25.561 Pain in right knee; S89.91XS Unspecified injury of right lower leg, sequela; G89.29 Other chronic pain; J35.1 Hypertrophy of tonsils; R13.12 Dysphagia, oropharyngeal phase
CPT/HCPCS: 99214; 99395

== ENCOUNTER 2023-08-11 09:28 | Outpatient (REF) | payer OTHER, SELFPAY ==
--- NOTE | ~2023-08-11 | XR_ITS ---
EXAMINATION: XR KNEE, RIGHT CLINICAL INFORMATION: Unspecified injury of right lower leg. COMPARISON: None available. TECHNIQUE: Four views of the right knee. FINDINGS: No fracture or joint effusion. Alignment is anatomic. Joint spaces are maintained. No abnormal soft tissue calcification. XR/XR knee RT 4V IMPRESSION: Unremarkable plain radiographs of the right knee.
[2023-08-11 13:17] LABS: MANUAL DIFF FLAG NO
[2023-08-11 13:32] LABS: Basophils Absolute Auto 0.1 X10*3/uL (0.0-0.2); Basophils Percent Auto 0.7 % (0-2); Eosinophils Absolute Auto 0.3 X10*3/uL (0.0-0.4); Eosinophils Percent Auto 3.2 % (0-4); Hematocrit 44.4 % (37.0-47.0); Hemoglobin 14.6 g/dl (12.0-16.0); Imm Gran Abs Auto 0.03 X10*3/uL (0.00-0.03); Imm Gran Pct Auto 0.3 % (0.0-0.4); Lymphocytes Absolute Auto 2.5 X10*3/uL (1.2-4.9); Lymphocytes Percent Auto 27.9 % (20-40); Mean Corpuscular HGB Conc 32.9 g/dl (31.0-35.0); Mean Corpuscular Volume 91.4 fL (80.0-98.0); Monocytes Absolute Auto 0.7 X10*3/uL (0.1-1.2); Monocytes Percent Auto 7.8 % (2-11); Neutrophils Absolute Auto 5.3 x10*3/uL (2.0-8.3); Neutrophils Percent Auto 60.1 % (45-73); Platelet Count 217 X10*3/uL (160-400); Red Blood Count 4.86 X10*6/uL (4.20-5.50); Red Cell Distribution Width 13.9 % (11.0-16.0); White Blood Count 8.8 X10*3/uL (4.8-10.8)
[2023-08-11 13:37] LABS: Estimated Average Glucose 120 mg/dL; Hemoglobin A1c % 5.8 % (<6.0)
[2023-08-11 13:56] LABS: Alanine Aminotransferase 17 U/L (0-31); Albumin Level 4.2 g/dL (3.5-5.0); Alkaline Phosphatase 60 U/L (39-117); Anion Gap 13 (12-20); Aspartate Amino Transferase 14 U/L (5-31); Bilirubin Total 0.3 mg/dL (0.0-1.0); Blood Urea Nitrogen 12 mg/dL (9-16); Calcium 9.5 mg/dL (8.4-10.2); Carbon Dioxide 25 mmol/L (22-29); Chloride 106 mmol/L (96-108); Estimated Glomerular Filt Rate > 60; Glucose Random 109 mg/dL (60-115); Potassium 4.1 mmol/L (3.3-5.1); Sodium 140 mmol/L (135-145); Total Protein 6.9 g/dL (6.5-8.0)
[2023-08-11 14:09] LABS: Creatinine Urine 204.93 mg/dL; Microalbum/Creatinine Ratio Ur 11.2 ug/mg cr (<30)
[2023-08-12 11:28] LABS: LDL Cholesterol Direct 95 mg/dL (<100)
== END 2023-08-11 09:29 | disposition home or self-care (01) ==
LOC: HO.HMGCX 09:28
PROVIDERS: PCP Internal Medicine; Visit Provider Internal Medicine
DX: Z00.01 Encounter for general adult medical examination with abnormal findings (principal); S89.91XA Unspecified injury of right lower leg, initial encounter; R79.89 Other specified abnormal findings of blood chemistry; J45.40 Moderate persistent asthma, uncomplicated; E11.9 Type 2 diabetes mellitus without complications; M25.569 Pain in unspecified knee; X58.XXXA Exposure to other specified factors, initial encounter; Y93.9 Activity, unspecified; Y92.9 Unspecified place or not applicable; Y99.9 Unspecified external cause status
CPT/HCPCS: 36415; 73564; 80053; 82043; 82570; 83036; 83721; 85025

== ENCOUNTER 2023-08-24 13:41 | Outpatient (AMB) | payer OTHER, SELFPAY ==
--- NOTE | 2023-08-24 13:44 | MHC.OFFVIS ---
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 Refinish Technician Required: No Information Interpreted: non-clinical & clinical Pediatric Anesthesiologist: Pediatric Anesthesiologist Present (Madelyn) Allergies penicillin V Allergy (Unknown, Verified 08/24/23 13:47) rash Is last menstrual period known: Yes Last menstrual period: 07/21/23 Post menopausal: No HPI Comments Details: She is a premenopausal woman presenting for annual examination. Doing well with concerns: She reports pelvic cramping pain. She denies any constipation, diarrhea, vaginal irritation, odors, or urinary symptoms. She tries to eat healthy and stays active with exercise-walking. Regular monthly menses, late for menses by 1 week urine test is negative. History of infertility, last seen at [facility] approximately 2 years ago. Currently is sexually active. STI screening offered; she accepts. Denies family history of breast or ovarian cancer. FH of colon cancer. Last pap smear 2021, negative. Last prior negative was 2018, history of REMI 1 in 2. [facility] Medical History REMI II (cervical intraepithelial neoplasia II) REMI I (cervical intraepithelial neoplasia I) BMI 35.0-35.9,adult Umbilical hernia Obesity Tired Vitamin D deficiency Asthma PCOS (polycystic ovarian syndrome) Anxiety Surgical History H/O cervical polypectomy No pertinent past surgical history Family History Father Unknown family medical history Mother Internal bleeding Maternal Grandmother Colon cancer Maternal Grandfather Colon cancer Paternal Grandfather No problems noted. Paternal Grandmother No problems noted. Sister Cervical cancer Other Mental health disorder Substance use disorder Social History Housing: Apartment Alcohol intake: unknown Patient Tobacco Use Status: Current everyday Tobacco user Cigarettes Per Day: 6 Years Smoked: 10 e-Cigarette/Vaping Use: Never Used service: No Current occupational status: employed Cognitive needs: No Hearing needs: No Vision needs: Yes Female Reproductive History Menstrual Age of Menarche: 10 Duration of menses: 3-5 days Date of last menstrual period: 07/21/23 control method: none Total pregnancies: 3 Full term: 1 Number of Living Children: 1 Ab spontaneous: 2 Date of last pap smear: 07/31/21 (negative) History of abnormal pap smear: Yes (2016 CIN2, 2016 2013 2010 ASCUS, 2015 2012 2011 2008 CIN1, 2006 HGSIL) Review of Systems Const All systems reviewed & are unremarkable except as noted in HPI and below Reports as per HPI Eyes Reports no additional complaints ENT Reports no additional complaints Card Reports no additional complaints Resp Reports no additional complaints GI Reports as per HPI and Reports no additional complaints Reports as per HPI Musc Reports no additional complaints Skin/Breast Reports as per HPI Neuro Reports no additional complaints Psych Reports no additional complaints Endo Reports no additional complaints Justus/Lymph Reports no additional complaints Aller/Immun Reports no additional complaints Physical Exam Vital Signs: Last Vital Signs BP 100/66 08/24/23 13:45 BMI result Body Mass Index 33.1 Const General: cooperative, healthy appearing, no acute distress, well developed and alert Orientation/consciousness: patient oriented x3 HEENT Head: Yes normal to inspection Eyes General: appearance normal, both eyes and all related structures Neck Neck: Yes normal visual inspection Thyroid: Thyroid normal Chest Chest palpation & inspection: normal inspection of the chest and other (no puckering, dimpling, peau de orange, retraction, discharge, masses) Breast/axilla inspection: normal inspection of the breasts Breast/axilla palpation: normal palpation of the breasts Resp Effort & Inspection: normal respiratory effort GI Inspection: Yes normal to inspection Palpation (GI): Soft to palpation Rectal Exam - Female: deferred General: Yes bladder normal to palpation External Female Exam: normal external appearance and normal appearance of the urethra Speculum Exam - Vagina: normal appearance of the vagina, normal palpation and normal vaginal discharge Speculum Exam - Cervix: normal appearance of the cervix and normal palpation Bimanual exam- vagina & uterus: normal bimanual exam, normal palpation, uterine size normal, bladder normal to palpation, normal palpation and non-tender Bimanual Exam- Adnexa, other: no masses Skin General skin exam: no rashes or lesions noted Rashes: no rashes Neuro General: patient oriented x3 Cognition (Neuro): normal cognition Extrem General: Yes normal to inspection Psych Attitude: cooperative Thought process: Normal thought process present Assessment & Plan Assessment & Plan (1) Encounter for gynecological examination (general) (routine) with abnormal findings: Code(s): Z01.411 - Encounter for gynecological examination (general) (routine) with abnormal findings Category: Medical (2) Pelvic pain: Code(s): R10.2 - Pelvic and perineal pain Category: Medical Plan Discussed: Current recommendations for pap smears per ASCCP guidelines. Breast awareness and periodic breast exams. Maintain a healthy lifestyle including a well balanced diet and routine exercise. Start vitamins. Check with insurance plan regarding coverage for infertility services, call [facility] to set up an appointment, if needing a referral please call the office in one can be sent when she finds a provider she wants to see. Options for other Services when then the area were provided. Plan pelvic ultrasound workup for pelvic pain, cervical cultures for gonorrhea chlamydia and BV panel sent today. Return to the office for test results after the ultrasound is complete. Instructions for lab work reviewed with patient today. Patient verbalizes understanding and agrees to the plan of care. She was given opportunity to ask questions and all questions were answered to the best of my ability. RTO in one year for annual primary care sales representative examination. This note is constructed using voice recognition software. While every effort has been made to ensure accuracy, control integration engineer errors may have been included. Orders: Orders CT NG by PCR Today Z11.3 - Encounter for screening for infections with a predominantly sexual mode of transmission HIV Ab/Ag Today Z20.2 - Contact with and (suspected) exposure to infections with a predominantly sexual mode of transmission Hepatitis C Antibody Reflex Today Z20.2 - Contact with and (suspected) exposure to infections with a predominantly sexual mode of transmission Bacterial Vaginosis Panel Today Z11.3 - Encounter for screening for infections with a predominantly sexual mode of transmission US pelvic and transvaginal Today R10.2 - Pelvic and perineal pain Hepatitis B Core Antibody Today Z20.2 - Contact with and (suspected) exposure to infections with a predominantly sexual mode of transmission Syphilis Screen Today Z20.2 - Contact with and (suspected) exposure to infections with a predominantly sexual mode of transmission Medications: New PNV,calcium 51-veso-cwnum acid 27 mg iron- 1 mg ( Vitamins Plus Low Iron) 1 tab PO DAILY 90 tabs 4RF Coding Level of Care Code Est Pt Prev Care 18-39y(13723) Diagnoses Encounter for gynecological examination (general) (routine) with abnormal findings Z01.411 Pelvic pain R10.2
[2023-08-24 13:45] VITALS: BP 100/66; BMI 33.1
== END 2023-08-24 14:27 | disposition home or self-care (01) ==
PROVIDERS: PCP Internal Medicine; Visit Provider Advanced Practice Midwife
DX: Z01.411 Encounter for gynecological examination (general) (routine) with abnormal findings (principal); R10.2 Pelvic and perineal pain; Z32.02 Encounter for pregnancy test, result negative
CPT/HCPCS: 99395

== ENCOUNTER 2023-08-24 13:41 | Outpatient (REF) | payer OTHER, SELFPAY ==
[2023-08-25 09:10] LABS: Bacterial Vaginosis PCR POSITIVE (Negative); Candida Group PCR NOT DETECTED (Not Detect); Candida glab krusei PCR NOT DETECTED (Not Detect); Trichomonas vaginalis PCR NOT DETECTED (Not Detect)
[2023-08-25 09:20] LABS: CT PCR NOT DETECTED (Not Detect.); NG PCR NOT DETECTED (Not Detect.)
== END 2023-08-24 13:42 | disposition home or self-care (01) ==
LOC: HO.LNP 13:41
PROVIDERS: PCP Internal Medicine; Visit Provider Advanced Practice Midwife
DX: Z01.411 Encounter for gynecological examination (general) (routine) with abnormal findings (principal); R10.2 Pelvic and perineal pain; Z20.2 Contact with and (suspected) exposure to infections with a predominantly sexual mode of transmission
CPT/HCPCS: 0352U; 0353U; 81025; 99395

== ENCOUNTER 2023-09-01 12:44 | Outpatient (REF) | payer OTHER, SELFPAY ==
--- NOTE | ~2023-09-01 | US_ITS ---
EXAMINATION: US PELVIS CLINICAL INFORMATION: Pelvic pain, last menstrual period 07/16/2023. COMPARISON: None available. TECHNIQUE: Ultrasound of the pelvis is performed using both transabdominal and transvaginal transducers along with Doppler. Transvaginal imaging is performed due to inadequate visualization transabdominally. FINDINGS: The uterus is anteverted and measures 10.1 x 5.9 x 6.9 cm. No discrete fibroids are appreciated. Endometrial thickness is 13 mm. Small amount of free fluid. Left ovary measures 3.7 x 2.5 x 2.5 cm, volume 12.1 mL and is grossly unremarkable. Right ovary measures 5.0 x 3.3 x 2.8 cm, volume 24.2 mL. A 1.8 x 1.5 x 1.5 cm complex, heterogeneous right ovarian cyst was not identified on the prior exam and may represent a corpus luteum. US/US pelvic and transvaginal IMPRESSION: 1. Double wall endometrial thickness is 13 mm. 2. Small amount of free fluid. 3. Right ovarian 1.8 cm complex thick-walled cystic lesion may represent a corpus luteum; however, correlation with clinical exam recommended for this patient with pelvic pain in order to determine further management.
[2023-09-02 09:05] LABS: HBc Num1 0.08 S/CO (0.00-0.79); HIV AB/AG Nonreactive (Nonreactive); HIV Num 1 0.05 S/CO (0.00-0.99); Hepatitis B Core Antibody Nonreactive (Nonreactive); ~HepC Num1 0.06 S/CO (0.00-0.79); ~Hepatitis C Antibody Nonreactive (Nonreactive)
[2023-09-02 09:08] LABS: Syphilis Screen Nonreactive (Nonreactive)
== END 2023-09-01 12:45 | disposition home or self-care (01) ==
LOC: HO.US 12:44
PROVIDERS: PCP Internal Medicine; Visit Provider Advanced Practice Midwife
DX: R10.2 Pelvic and perineal pain (principal); Z20.2 Contact with and (suspected) exposure to infections with a predominantly sexual mode of transmission
CPT/HCPCS: 36415; 76830; 76856; 86704; 86780; 86803; 87389

== ENCOUNTER 2023-09-14 10:07 | Outpatient (REF) | payer OTHER, SELFPAY | END 2023-09-14 10:08 | disposition home or self-care (01) | LOC: HO.HOSX 10:07 | PROVIDERS: Visit Provider Physician Assistant | DX: Z13.89 Encounter for screening for other disorder (principal) ==

== ENCOUNTER 2023-09-29 15:47 | Outpatient (AMB) | payer OTHER, SELFPAY ==
[2023-09-29 15:54] VITALS: BP 118/62; BMI 33.7
--- NOTE | 2023-09-29 15:54 | MHC.OFFVIS ---
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 Her last visit she had some irregular cycles some lower pelvic pain. She reports the pain has resolved. She did a repeat test a week after her visit and it was positive she has been seen at the [facility] for care her beta-hCGs were she reports last was ,888, she has a OB ultrasound scheduled this Wednesday at [facility]. She is planning to have her OB care at [facility]. [facility] Medical History REMI II (cervical intraepithelial neoplasia II) REMI I (cervical intraepithelial neoplasia I) BMI 35.0-35.9,adult Umbilical hernia Obesity Tired Vitamin D deficiency Asthma PCOS (polycystic ovarian syndrome) Anxiety Surgical History H/O cervical polypectomy No pertinent past surgical history Family History Father Unknown family medical history Mother Internal bleeding Maternal Grandmother Colon cancer Maternal Grandfather Colon cancer Paternal Grandfather No problems noted. Paternal Grandmother No problems noted. Sister Cervical cancer Other Mental health disorder Substance use disorder Social History Housing: Apartment Alcohol intake: unknown Patient Tobacco Use Status: Current everyday Tobacco user Cigarettes Per Day: 6 Years Smoked: 10 e-Cigarette/Vaping Use: Never Used service: No Current occupational status: employed Cognitive needs: No Hearing needs: No Vision needs: Yes Female Reproductive History Menstrual Age of Menarche: 10 Review of Systems Const All systems reviewed & are unremarkable except as noted in HPI and below Endo Reports no additional complaints Physical Exam Vital Signs: Last Vital Signs BP 118/62 09/29/23 15:54 BMI result Body Mass Index 33.7 Const General: cooperative, healthy appearing and no acute distress Psych Appearance: well kempt Attitude: cooperative Thought process: Normal thought process present Results Reviewed Results Reviewed: [address] [address] Ultrasound Report Signed Patient: Zulma Cifuentes MR#: [id number] : 1990 Acct:[id number] Age/Sex: 33 / F ADM Date: 09/01/23 Loc: HO.US Attending Dr: Lois Aguilar CNM Ordering Physician: Lois Aguliar CNM Date of Service: 09/01/23 Procedure(s): US pelvic and transvaginal Accession Number(s): [id number] cc: Bethanie Kline MD; Lois Aguilar CNM~ EXAMINATION: US PELVIS CLINICAL INFORMATION: Pelvic pain, last menstrual period 07/16/2023. COMPARISON: None available. TECHNIQUE: Ultrasound of the pelvis is performed using both transabdominal and transvaginal transducers along with Doppler. Transvaginal imaging is performed due to inadequate visualization transabdominally. FINDINGS: The uterus is anteverted and measures 10.1 x 5.9 x 6.9 cm. No discrete fibroids are appreciated. Endometrial thickness is 13 mm. Small amount of free fluid. Left ovary measures 3.7 x 2.5 x 2.5 cm, volume 12.1 mL and is grossly unremarkable. Right ovary measures 5.0 x 3.3 x 2.8 cm, volume 24.2 mL. A 1.8 x 1.5 x 1.5 cm complex, heterogeneous right ovarian cyst was not identified on the prior exam and may represent a corpus luteum. US/US pelvic and transvaginal IMPRESSION: 1. Double wall endometrial thickness is 13 mm. 2. Small amount of free fluid. 3. Right ovarian 1.8 cm complex thick-walled cystic lesion may represent a corpus luteum; however, correlation with clinical exam recommended for this patient with pelvic pain in order to determine further management. Dictated By: Trupti Aguirre MD Signed By: <Electronically signed by Trupti Aguirre MD in OV> 09/06/23 1017 DD/ 1312 TD/TT: Relay Checker: Assessment & Plan Assessment & Plan (1) Encounter to discuss test results: Code(s): Z71.2 - Person consulting for explanation of examination or test findings Plan Reviewed the pelvic ultrasound discuss the right corpus luteum cyst. Continue care at [facility] was a women's for her . All of her questions and concerns were addressed to the best of my ability and shared decision making. She is agreeable to the plan of care. This note is constructed using voice recognition software. While every effort has been made to ensure accuracy, burner technician errors may have been included. Coding Level of Care Code Est Pt Level 3 (67837) Diagnoses Encounter to discuss test results Z71.2
== END 2023-09-29 16:09 | disposition home or self-care (01) ==
PROVIDERS: PCP Internal Medicine; Visit Provider Advanced Practice Midwife
DX: Z71.2 Person consulting for explanation of examination or test findings (principal)
CPT/HCPCS: 99213

== ENCOUNTER → 2023-09-29 15:47 | Outpatient (BNVA) | payer OTHER, SELFPAY | PROVIDERS: PCP Internal Medicine; Visit Provider Advanced Practice Midwife | DX: O34.80 Maternal care for other abnormalities of pelvic organs, unspecified trimester (principal) | CPT/HCPCS: 99212 ==

== ENCOUNTER 2023-12-21 21:49 | Emergency (ER) | payer OTHER, SELFPAY ==
[2023-12-21 22:22] VITALS: BP 109/67; PULSE 73; RESP 18; TEMP 36.8; O2SAT 98; BMI 38.0
[2023-12-21 22:51] LABS: Hematocrit 32.4 % (37.0-47.0); Hemoglobin 11.1 g/dl (12.0-16.0); Mean Corpuscular HGB Conc 34.3 g/dl (31.0-35.0); Mean Corpuscular Hemoglobin 30.3 pg (27.0-33.0); Mean Corpuscular Volume 88.5 fL (80.0-98.0); Mean Platelet Volume 11.6 fL (9.4-12.3); Platelet Count 189 X10*3/uL (160-400); Red Blood Count 3.66 X10*6/uL (4.20-5.50); Red Cell Distribution Width 13.7 % (11.0-16.0); White Blood Count 11.1 X10*3/uL (4.8-10.8)
[2023-12-21 23:06] LABS: Anion Gap 12 (12-20); Blood Urea Nitrogen 8 mg/dL (9-16); Calcium 8.9 mg/dL (8.4-10.2); Carbon Dioxide 23 mmol/L (22-29); Chloride 107 mmol/L (96-108); Creatinine Clr Calc Pharmacy 137.6; Estimated Glomerular Filt Rate > 60; Glucose Random 103 mg/dL (60-115); Potassium 3.6 mmol/L (3.3-5.1); Sodium 138 mmol/L (135-145)
[2023-12-21 23:23] LABS: COVID-19 Test Negative (Negative); IDNOW Serial# 08D9AD1C; IDNOW Serial# 152EDE1D; Influenza A Negative (Negative); Influenza B2 Negative (Negative)
--- NOTE | 2023-12-22 02:07 | ED.HA ---
HPI - Headache General Chief Complaint: Headache Stated Complaint: Headache/5 mos preg Time Seen by Provider: 12/22/23 02:06 Source: patient Mode of arrival: ambulatory Limitations: no limitations History of Present Illness ED Provider: Dr. Hale HPI Narrative: Patient is 5 months , now with right sided Headache. she has headaches in the past Related Data Previous Rx's ?Medication ?Instructions ?Recorded fluticasone furoate 200 1 inh inhalation DAILY 30 days #28 05/28/21 mcg-vilanterol 25 mcg/dose ea inhalation powder (Breo Ellipta) omeprazole 20 mg capsule,delayed 20 mg PO DAILY 90 days #90 caps 12/02/21 release blood sugar diagnostic (OneTouch #100 ea 01/20/22 Ultra Test strips) blood-glucose meter (OneTouch #1 ea 01/20/22 Ultra2 Meter) lancets 30 gauge (OneTouch Delica #100 ea 01/20/22 Lancets) fluticasone propionate 50 1 spray intranasal DAILY #16 grams 08/11/23 mcg/actuation nasal spray,suspension (Flonase Allergy Relief) vitamin with calcium 1 tab PO DAILY #90 tabs 08/24/23 no.72-iron 27 mg-folic acid 1 mg tablet ( Vitamins Plus Low Iron) Symbicort 160 mcg-4.5 2 puff inhalation BID 30 days 10/13/23 mcg/actuation HFA aerosol inhaler #10.2 grams (budesonide-formoterol) albuterol sulfate 90 mcg/actuation 2 puff inhalation QID PRN 12/21/23 aerosol inhaler (Ventolin HFA) bronchospasm 30 days #8.5 grams ondansetron 4 mg disintegrating 4 mg PO Q8H 4 days #12 tabs 12/22/23 tablet Allergies Allergy/AdvReac Type Severity Reaction Status Date / Time penicillin V Allergy Unknown rash Verified 12/21/23 22:26 Review of Systems Review of Systems: Yes all other systems are reviewed and are negative Neurologic: Denies Sensory deficit (Neuro) [facility] Past Medical History Medical History REMI II (cervical intraepithelial neoplasia II) REMI I (cervical intraepithelial neoplasia I) BMI 35.0-35.9,adult Umbilical hernia Obesity Tired Vitamin D deficiency Asthma PCOS (polycystic ovarian syndrome) Anxiety Surgical History H/O cervical polypectomy No pertinent past surgical history Family History Family History Father Unknown family medical history Mother Internal bleeding Maternal Grandmother Colon cancer Maternal Grandfather Colon cancer Paternal Grandfather No problems noted. Paternal Grandmother No problems noted. Sister Cervical cancer Other Mental health disorder Substance use disorder Social History Social History Housing: Apartment Alcohol intake: unknown Patient Tobacco Use Status: Current everyday Tobacco user Cigarettes Per Day: 6 Years Smoked: 10 Smoked in Last 30 Days: No e-Cigarette/Vaping Use: Never Used Use of substances other than those prescribed or required for medical reasons: No Advance Directives: No Advance Directives Information Provided: No Do you have a plan to hurt others: No Plan Patient : No service: No Current occupational status: employed Cognitive needs: No Hearing needs: No Vision needs: Yes Physical Exam Vital Signs: Vital Signs: Last Vital Signs Temp 98.3 F 12/21/23 22:22 Pulse 73 12/21/23 22:22 Resp 18 12/21/23 22:22 BP 109/67 12/21/23 22:22 Pulse Ox 98 12/21/23 22:22 O2 Del Method Room Air 12/21/23 22:22 BMI result Body Mass Index 38.0 Const: General: healthy appearing Nutritional Appearance: average body habitus Orientation/consciousness: oriented to person and patient oriented x3 Limitations: no limitations HEENT: Head: Yes normal to inspection Ears: external ears normal General nose exam: Normal external nose present Mouth: Normal oral and palatal mucosa present and oropharynx normal Throat: Yes posterior oropharynx normal Eyes: General: appearance normal, both eyes and all related structures Neck: Other: supple Neck: Yes normal visual inspection Chest: Chest palpation & inspection: normal inspection of the chest Resp: Auscultation: clear to auscultation bilaterally Cardio: Jugular venous distension: no JVD Rate: regular rate Rhythm: regular rhythm Heart sounds: S1 normal heart sound present and S2 normal heart sound present GI: Inspection: Yes normal to inspection Palpation (GI): Soft to palpation, nontender and No hepatosplenomegaly present Auscultation: normal bowel sounds : General: Yes no CVA tenderness Back/Spine/Pelvis: Back: no CVA tenderness Skin: General skin exam: no rashes or lesions noted Neuro: General: oriented to person and patient oriented x3 Cranial nerves: Yes CN's II-XII intact bilaterally Motor exam (neuro): 5/5 motor strength present throughout Sensory Exam: No Sensory deficit (Neuro) Extrem: General: Yes normal to inspection Psych: Appearance: grossly normal Course Reevaluation(s) Reevaluation #1: Patient hydrated and given reglan, feeling better Time: 04:41 Medications Administered Discontinued Medications Generic Name Dose Route Start Last Admin Trade Name Freq PRN Reason Stop Dose Admin Acetaminophen 975 mg 12/22/23 02:20 12/22/23 02:48 Acetaminophen 325 Mg Tablet PO 12/22/23 02:21 975 mg ONCE ONE Administration Sodium Chloride 1,000 mls @ 999 mls/hr 12/22/23 02:30 12/22/23 04:34 Ns IV 12/22/23 03:30 Infused .Q1H1M SHANIKA Infusion Metoclopramide HCl 10 mg 12/22/23 02:20 12/22/23 02:48 Metoclopramide Hcl 10 Mg/2 Ml Vial IVPUSH 12/22/23 02:21 10 mg ONCE ONE Administration Medical Decision Making Differential Diagnosis Differential Diagnoses: The differential diagnosis associated with the presentation includes (migraine, dehydration) Lab Data 12/21/23 22:44 12/21/23 22:44 Labs: Lab Results 12/21/23 12/22/23 Range/Units 22:44 02:52 WBC 11.1 H (4.8-10.8) X10*3/uL RBC 3.66 L D (4.20-5.50) X10*6/uL Hgb 11.1 L D (12.0-16.0) g/dl Hct 32.4 L D (37.0-47.0) % MCV 88.5 (80.0-98.0) fL MCH 30.3 (27.0-33.0) pg MCHC 34.3 (31.0-35.0) g/dl RDW 13.7 (11.0-16.0) % Plt Count 189 (160-400) X10*3/uL MPV 11.6 (9.4-12.3) fL Absolute Nucleated RBC 0.000 (0.0-0.012) X10*3/uL Nucleated RBC % (auto) 0.0 (0.0-0.2) /100WBC Sodium 138 (135-145) mmol/L Potassium 3.6 (3.3-5.1) mmol/L Chloride 107 (96-108) mmol/L Carbon Dioxide 23 (22-29) mmol/L Anion Gap 12 (12-20) BUN 8 L (9-16) mg/dL Creatinine 0.64 (0.5-1.4) mg/dL Estim Creat Clear Calc 137.6 Estimated GFR > 60 Random Glucose 103 (60-115) mg/dL Calcium 8.9 D (8.4-10.2) mg/dL Urine Color Yellow Urine Appearance Cloudy Urine pH 6.5 (5.0-9.0) Ur Specific Rufe 1.015 (1.005-1.025) Urine Protein Negative (Neg-Trace) mg/dL Urine Glucose (UA) Negative (Negative) mg/dL Urine Ketones Negative (Negative) mg/dL Urine Blood Negative (Negative) Urine Nitrite Negative (Negative) Ur Leukocyte Esterase Trace H (Negative) Urine RBC 0-2 (0-2) /HPF Urine WBC 11-20 H (0-5) /HPF Ur Squamous Epith Cells >20 (0-2) /HPF Other Crystals Present Urine Bacteria 3+ (None Seen) Hyaline Casts 0-2 (0-2) /LPF COVID-19 (SONG) Negative (Negative) COVID-19 Clin Com See Note Influenza Type A (ASHLEY) Negative (Negative) Influenza Type B (ASHLEY) Negative (Negative) Influenza A & B Note See Note Prescription Management I considered prescription management with: Antibiotic (patient with no urinary symptoms, dirty sample will not treat at this time) Discharge Plan Discharge Clinical Impression: Headache, migraine Patient Disposition: Home, Self-Care Instructions: Migraine Headache (ED) Additional Instructions: may take tylenol and zofran which is safe in pregnacy. Keep hydrated Prescriptions: New ondansetron 4 mg tablet,disintegrating 4 mg PO Q8H 4 Days Qty: 12 0RF No Action omeprazole 20 mg capsule,delayed release(DR/EC) 20 mg PO DAILY 90 Days Qty: 90 0RF (DME) blood-glucose meter [OneTouch Ultra2 Meter] Misc See Rx Instructions .Route Qty: 1 0RF Rx Instructions: Once a day (DME) lancets [OneTouch Delica Lancets] 30 gauge misc See Rx Instructions .Route Qty: 100 0RF Rx Instructions: Once a day (DME) OneTouch Ultra Test Strip See Rx Instructions .Route Qty: 100 0RF Rx Instructions: Once a day budesonide-formoterol [Symbicort] 160-4.5 mcg/actuation HFA aerosol inhaler 2 puff inhalation BID 30 Days Qty: 10.2 3RF albuterol sulfate [Ventolin HFA] 90 mcg/actuation HFA aerosol inhaler 2 puff inhalation QID PRN (Reason: bronchospasm) 30 Days Qty: 8.5 4RF Breo Ellipta 200-25 mcg/dose blister with device 1 inh inhalation DAILY 30 Days Qty: 28 0RF fluticasone propionate [Flonase Allergy Relief] 50 mcg/actuation spray,suspension 1 spray intranasal DAILY Qty: 16 0RF Rx Instructions: administer into each nostril Vitamin Plus Low Iron 27 mg iron- 1 mg tablet 1 tab PO DAILY Qty: 90 4RF Referrals: Bethanie Kline MD [Primary Care Provider] - 3 days Print Language: Swiss
[2023-12-22] MEDS: 0.9 % Sodium Chloride 1,000 ML 999 ML IV (02:47)
[2023-12-22] MEDS: Acetaminophen 325 MG TABLET 975 MG PO (02:48)
[2023-12-22] MEDS: Metoclopramide HCl 10 MG/2 ML VIAL IVPUSH (02:48)
--- NOTE | 2023-12-22 02:58 | PC.NURSE ---
#20 IV placed in R-AC, medicated per MAR. Urine collected and sent to lab
[2023-12-22 03:00] LABS: Appearance Urine Cloudy; Color Urine Yellow; Glucose Urine UA Negative (Negative); Leukocyte Esterase Urine Trace (Negative); Nitrite Urine Negative (Negative); PH 6.5 (5.0-9.0); Specific Gravity - Urine 1.015 (1.005-1.025); UMIC TRIGGER UA YES; Urine Blood Negative (Negative); Urine Ketones Negative (Negative); Urine Protein Negative (Neg-Trace)
[2023-12-22 03:13] LABS: Bacteria Urine 3+ (None Seen); Hyaline Casts Urine 0-2 /LPF (0-2); Other Crystals Urine Present; RBC Urine 0-2 /HPF (0-2); Squamous Epithelial Cell Urine >20 /HPF (0-2)
[2023-12-22 05:40] VITALS: BP 102/66; PULSE 67; RESP 18; TEMP 36.2; O2SAT 100
[2023-12-22 06:18] VITALS: BP 102/66; PULSE 67; RESP 18; TEMP 36.2; O2SAT 100
== END 2023-12-22 05:40 | disposition home or self-care (01) ==
PROVIDERS: Emergency Provider Emergency Medicine; PCP Internal Medicine
DX: G43.909 Migraine, unspecified, not intractable, without status migrainosus (principal); R11.0 Nausea; F17.210 Nicotine dependence, cigarettes, uncomplicated; Z11.52 Encounter for screening for COVID-19; Z79.899 Other long term (current) drug therapy
CPT/HCPCS: 80048; 81001; 81003; 85027; 87086; 87502; 87635; 96361; 96374; 99284; 99285; J2765

== ENCOUNTER 2024-07-05 12:02 | Outpatient (AMB) | payer OTHER, SELFPAY ==
[2024-07-05 12:10] VITALS: BP 102/74; PULSE 66; O2SAT 100; BMI 34.5
--- NOTE | 2024-07-05 12:10 | A.OFFPC_ITS ---
Vital Signs 07/05/24 12:10 Height 5 ft 3 in Weight 194 lb 8 oz BMI 34.5 BP 102/74 Blood Pressure Location Lt brachial Position Sitting Pulse 66 Pulse Source Pulse Oximeter Pulse Oximetry (%) 100 Oxygen Delivery Method Room Air Intake Visit Reasons: Ear problems Allergies penicillin V Allergy (Unknown, Verified 12/21/23 22:26) rash Medication List - Last Reconciled 07/05/24 by Bethanie Kline MD albuterol sulfate 90 mcg/actuation (Ventolin HFA) 2 puffs inhalation QID PRN 30 days blood sugar diagnostic ([employer] Ultra Test strips) Once a day blood-glucose meter ([employer] Ultra2 Meter) Once a day fluticasone furoate-vilanterol 200-25 mcg/dose (Breo Ellipta) 1 inh inhalation DAILY 30 days lancets ([employer]uch[employer]Touch Delica Lancets) Once a day Symbicort 160-4.5 mcg/actuation (budesonide-formoterol) 2 puffs inhalation BID 30 days NS Tobacco use date assessed: 07/05/24 Dental Screening Dental Screen Date: 07/05/24 Did you have a dental visit in the last 12 months?: Yes Did you have a dental problem in the last 6 months where you did not have access to dental care?: No Was dental information given to patient?: Patient has dentist HPI Ear problems HPI Details History - The patient is a 34-year-old female pr esenting with symptoms of ear clogging and reduced hearing, primarily affecting her right ear but recently involving both ears. - Symptoms are intermittent, with period s of normalcy, and have been noted to potentially correlate with recent childbirth two months prior. - There are no additional symptoms such as sore throat or cough, and the patient denies exposure to typical ear aggravators such as swimming but uses Q-tip . - A history of vertigo exists, although previously unlinked to the primary issue. - Seasonal allergies are present, signif icantly during spring, with symptoms including sneezing and itching. - Past health history includes an unexpl ained numbness episode affecting both lower extremities, with prior negative imaging results. Patient states that her pelvic area feels numb all the time, when she has intimacy with her significant other she does not feel much of anything Before she also had paresthesia going down her right leg and sometimes left leg however that no longer is present There is no bowel or bladder issue Problem List - Eustachian Tube Dysfunction - Tonsillar Hypertrophy mild - seasonal allergies - pudendal nerve paresthesia - History of Vertigo Patient Instructions - Stop using Q-tips or cleaning the ears with non-recommended substances. - Avoid using any ear devices such as ea rplugs or earbuds. - Start taking antihistamines for managi ng seasonal allergies. - Attend the upcoming appointment with a neurologist to investigate symptoms of pelvic paresthesia. Referral placed - Keep the scheduled physical exam appoi ntment in August, and avoid seeing a chiropractor until after the neurology consultation. Review of Systems - General: No fever no chills - Neurological: No headaches no dizziness - Ear nose throat: No sore throat no hearing difficulty no ear pain - Cardiovascular: No syncope, no chest pain, no palpitations - Gastrointestinal: No nausea vomiting or diarrhea - Endocrine: No polyuria polydipsia no heat intolerance - Genitourinary: No dysuria , no blood in urine Physical Exam General: No acute distress HEENT: Right ear no infection, no wax Neck: Supple Respiratory system: Able to talk in full sentences, no audible wheeze Cardiovascular: S1-S2 regular in rate and rhythm Gastrointestinal: No pain Extremities: Numbness from the waist down, tingling sensation in toes, no new findings HAND BASEBALL SEWER: Alert awake oriented x3 motor sensory intact Skin: Normal turgor PFSH Medical History REMI II (cervical intraepithelial neoplasia II) REMI I (cervical intraepithelial neoplasia I) BMI 35.0-35.9,adult Umbilical hernia Obesity Tired Vitamin D deficiency Asthma PCOS (polycystic ovarian syndrome) Anxiety Surgical History H/O cervical polypectomy No pertinent past surgical history Family History Father Unknown family medical history Mother Internal bleeding Maternal Grandmother Colon cancer Maternal Grandfather Colon cancer Paternal Grandfather No problems noted. Paternal Grandmother No problems noted. Sister Cervical cancer Other Mental health disorder Substance use disorder Social History Housing: Apartment Alcohol intake: unknown Patient Tobacco Use Status: Current everyday Tobacco user Cigarettes Per Day: 6 Years Smoked: 10 e-Cigarette/Vaping Use: Never Used service: No Current occupational status: employed Cognitive needs: No Hearing needs: No Vision needs: Yes Female Reproductive History Menstrual Age of Menarche: 10 Questionnaire PHQ-9 Over the last 2 weeks, how often have you been bothered by any of the following problems? 1. Little interest or pleasure in doing things: not at all 2. Feeling down, depressed, or hopeless: not at all 3. Trouble falling or staying asleep, or sleeping too much: not at all 4. Feeling tired or having little energy: not at all 5. Poor appetite or overeating: not at all 6. Feeling bad about yourself - or that you are a failure or have let yourself or your family down: not at all 7. Trouble concentrating on things, such as reading the newspaper or watching television: not at all 8. Moving or speaking so slowly that other people could have noticed. Or the opposite - being so fidgety or restless that you have been moving around a lot more than usual: not at all 9. Thoughts that you would be better off or of hurting yourself in some way: not at all Total score: 0 Depression Screening Interpretation: Negative Depression Screening Done: Yes 50900 - PHQ-9 Billing: Yes Source: Developed by Drs. Olivier Barbosa, Mary Purcell, Sandor Fair and colleagues, with an educational lamont from [employer]. Thrive Questionnaire Date Thrive assessed: 07/05/24 I am a: Patient What is your living situation today?: I have a steady place to live Within the past 12 months, did the food you bought not last and you didn't have the money to get more?: Never true Within the past 12 months, did you worry whether your food would run out before you got money to buy more?: Never true Do you have trouble paying for medicines?: No Do you have trouble getting transportation to medical appointments?: No Do you have trouble paying your heating and electricity bill?: No Do you have trouble taking care of your child, family member or friend?: No Do you have trouble with day-to-day activities such as bathing, preparing meals, shopping, managing finances, etc.?: No Are you currently unemployed and looking for a job?: Yes Are you interested in more education?: No Please select the resources that you would like help with: None Currently or been in a relationship where the following occur: No concerns reported THRIVE Score: 0 AUDIT C Alcohol Use Questionnaire (AUDIT-C) 1. How often do you have a drink containing alcohol?: Never 3. How often do you have six or more drinks on one occasion?: Never Total Score: 0 Score Reviewed/Action Taken: Yes MAURICIO-7 AMB Questionnaire MAURICIO-7 Date MAURICIO - 7 assessed: 07/05/24 Feeling nervous, anxious, or on edge: 0 = Not at all Not being able to stop or control worryin = Not at all Worrying too much about different things: 0 = Not at all Trouble relaxin = Not at all Being so restless that it is hard to sit still: 0 = Not at all Becoming easily annoyed or irritable: 0 = Not at all Feeling afraid as if something awful might happen: 0 = Not at all Total MAURICIO-7 score (0-4 normal; 5-9 mild; 10-14 moderate; 15-21 severe): 0 Source: Developed by Drs. Olivier Barbosa, Mary Purcell, Sandor Fair and colleagues, with an educational lamont from [employer]. MAURICIO-7 Assessment Billing MAURICIO-7 Assessment Tool: MAURICIO-7 Assessment 20003 Physical exam (Primary Care) Vital Signs: Last Vital Signs Pulse 66 07/05/24 12:10 BP 102/74 07/05/24 12:10 Pulse Ox 100 07/05/24 12:10 Oxygen Delivery Method Room Air 07/05/24 12:10 BMI result Body Mass Index 34.5 Tobacco/Smoking Status: Tobacco use Status Tobacco use date assessed 07/05/24 07/05/24 12:13 Patient Tobacco Use Status Current everyday Tobacco 07/05/24 12:13 e-Cigarette/Vaping Use Never Used 07/05/24 12:13 PHQ-9: PHQ-9 Score PHQ-9: Total score 0 07/05/24 12:35 Depression Screening Interpretation: Negative Thrive Assessment: Date of Thrive Assessment Date Thrive assessed 07/05/24 07/05/24 12:14 Currently or been in a relationship where the following occur: No concerns reported Coding Level of Care Code Est Pt Level 4 (16933) Diagnoses 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 Disorder of right eustachian tube H69.91 Additional Codes MAURICIO-7 Assessment Billing - MAURICIO-7 Assessment Tool: MAURICIO-7 Assessment 22294 ([id number]) PHQ-9 - 15900 - PHQ-9 Billing: Yes ([id number]) Assessment & Plan Assessment & Plan (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 - Symptoms are intermittent, with periods of normalcy, and have been noted to potentially correlate with recent childbirth two months prior. - There are no additional symptoms such as sore throat or cough, and the patient denies exposure to typical ear aggravators such as swimming but uses Q-tip . - A history of vertigo exists, although previously unlinked to the primary issue. - Seasonal allergies are present, significantly during spring, with symptoms including sneezing and itching. - Past health history includes an unexplained numbness episode affecting both lower extremities, with prior negative imaging results. Patient states that her pelvic area feels numb all the time, when she has intimacy with her significant other she does not feel much of anything Before she also had paresthesia going down her right leg and sometimes left leg however that no longer is present There is no bowel or bladder issue Problem List - Eustachian Tube Dysfunction - Tonsillar Hypertrophy mild - seasonal allergies - pudendal nerve paresthesia - History of Vertigo Patient Instructions - Stop using Q-tips or cleaning the ears with non-recommended substances. - Avoid using any ear devices such as earplugs or earbuds. - Start taking antihistamines for managing seasonal allergies. - Attend the upcoming appointment with a neurologist to investigate symptoms of pelvic paresthesia. Referral placed - Keep the scheduled physical exam appointment in August, and avoid seeing a chiropractor until after the neurology consultation. Orders: Referrals Neurology Referral G58.8 - Other specified mononeuropathies
--- OUTSIDE RECORDS SUMMARY | 2024-07-05 14:35 | XMS_ITS | Clinical Summary ---
Author Organization [facility] Address [address] [place] [id number] Phone Care Team Providers Care Clerical Administrative Assistant Name Role Phone Unavailable Primary Care Provider Unavailabl e Immunizations Immunization Administration Dates Next Due DTP 12/15/1993, 2,1989,07/05,1989 H1N1 01/28/2009 HPV, Quadrivalent 01/09/2009,10/27/2007 Hep A, ped/adol 12/02/2004 Hep B, ped/adol 07/14/2001,01/11/2001,12/10/2000 Hib (PRP-T) 08/01/1990,04/08/1990 IPV 12/16/1993, 2,1989,05/05 Influenza Split 04/20/2002 Influenza, injectable, trivalent 01/09/2009,04/05 MMR 02/04/1995,08/01/1990 Meningococcal Conj (Menactra) MCV4P 10/27/2007 Td (adult) (MBL), 2 Lf tetan us toxoid, PF, adsorbed 06/26/1999 Tdap 10/27/2007 Social History Tobacco Use Types Packs/Day Years Used Date Smoking Tobacco: Never Assessed Comments Unknown Sex and Gender Information Value Date Recorded Sex Assigned at Not on file Legal Sex Female 4:36 PM EDT Gender Identity Not on file Sexual Orientation Not on file Last Filed Vital Signs Vital Sign Reading Time Taken Comments Blood Pressure 96/52 09/26/2009 12:00 AM EDT Pulse - - Temperature 36.7 ??C (98 ??F) 09/26/2009 12:00 AM EDT Respiratory Rate - - Oxygen Saturation - - Inhaled Oxygen Concentration - - Weight 67.8 kg (149 lb 8 oz) 09/26/2009 12:00 AM EDT Height - - Body Mass Index - - Plan of Treatment Health Maintenance Due Date Last Done Comments Varicella Vaccines (1 of 2 - 13+ 2-dose series) 2002 Hepatitis A Vaccines (2 of 2 - 2-dose series) 06/02/2005 12/02/2004 HPV Vaccines (3 - 3-dose series) 04/03/2009 01/09/2009, 10/27/2007 DTaP,Tdap,and Td Vaccines (7 - Td or Tdap) 10/26/2017 10/27/2007, 06/26/1999, 12/15/1993, Additional history exists Influenza Vaccines (#1) 2023 01/10/20, 04/20/2002, 04/20/2002 COVID-19 Vaccine ( season) 2023 HIB Vaccines Completed 08/01/1990, 04/08/1990 IPV Vaccines Completed 12/16/1993, 04/05, 1989, Additional history exists MMR Vaccines Completed 02/04/1995, 08/01/1990 Hepatitis B Vaccines Completed 07/14/2001, 01/11/2001, 12/10/2000 Meningococcal Vaccine Completed 10/27/2007 Men B Vaccine Aged Out No longer elig ible based on patient's age to complete this topic Pneumococcal Vaccine Aged Out No long er eligible based on patient's age to complete this topic
--- OUTSIDE RECORDS SUMMARY | 2024-07-05 14:35 | XMS_ITS | Encounter Summary ---
Author Organization [facility] Address [address] [place] [address] Phone Care Team Providers Care Rn Stars Name Role Phone Ascencion Stewart MD Primary Care Provider [phone] Encounter Details Date Type Department Care Team (Late st Contact Info) Description 11/19/2016 Conversion Encounter [facility] [place] [address] [place] [address] Social History Tobacco Use Types Packs/Day Years Used Date Smoking Tobacco: Never Assessed Comments Unknown Sex and Gender Information Value Date Recorded Sex Assigned at Not on file Legal Sex Female 4:36 PM EDT Gender Identity Not on file Sexual Orientation Not on file documented as of this encounter Plan of Treatment Not on file documented as of this encounter Visit Diagnoses Not on filedocumented in this encounter Care Teams Rn Stars Relationship Specialty Start Date End Date Ascencion Stewart MD [address] [place] [address] PCP - General 11/13/16 06/23/22 documented as of this encounter
--- OUTSIDE RECORDS SUMMARY | 2024-07-05 14:35 | XMS_ITS | Encounter Summary ---
Author Organization [facility] Address [address] [place] [phone] Phone Care Team Providers Care Tree Shear Operator Name Role Phone Ascencion Stewart MD Primary Care Provider [phone] Encounter Details Date Type Department Care Team (Late st Contact Info) Description 11/17/2009 Documentation [facility] [place] [facility] [address] [place] [address] Family Medicine, Physician [address] [place], [place] [id number] Social History Tobacco Use Types Packs/Day Years [...] on filedocumented in this encounter Care Teams Tree Shear Operator Relationship Specialty Start Date End Date Ascencion Stewart MD [address] [place] [address] [place] [address] PCP - General 11/13/16 06/23/22 documented as of this encounter
== END 2024-07-05 13:10 | disposition home or self-care (01) ==
LOC: HO.HMCC 12:03
PROVIDERS: PCP Internal Medicine; Visit Provider Internal Medicine
DX: G58.8 Other specified mononeuropathies (principal); H69.91 Unspecified Eustachian tube disorder, right ear

== ENCOUNTER → 2024-07-05 12:02 | Outpatient (BNVA) | payer OTHER, SELFPAY | PROVIDERS: PCP Internal Medicine; Visit Provider Internal Medicine | DX: G58.8 Other specified mononeuropathies (principal); H69.91 Unspecified Eustachian tube disorder, right ear | CPT/HCPCS: 96127; 99212 ==

== ENCOUNTER → 2024-08-22 08:05 | Outpatient (RCR) | payer OTHER, SELFPAY ==
--- NOTE | 2020-03-14 10:34 | MHC.PT.DC ---
[facility] [place] Office [place] Office [place] Office [address] Jose Antonio Concepcion [address] [phone] F: [phone] F: [phone] F: [phone] F: [phone] Physical Therapy Discharge Report Diagnosis: Pain in Upper back Date of Surgery: Date of Evaluation: 12/22/19 Date of Discharge: Treatments to Date: 5 Cancellations to Date: 0 No Shows to Date: 2 Discharge Status: Visit Non-compliance Discharge Summary: Zulma had attended 5 treatment sessions with mild-moderate improvement. She demonstrated fair/poor compliance with a home program and ultimately stopped attending therapy. She is Dc'd per attendance policy. Electronically signed by: Kayden Solano PT. Please sign and return to therapist. Thank you for your referral.
== END | disposition home or self-care (01) ==
LOC: HO.PTCHIC 01-16 16:02
PROVIDERS: PCP Internal Medicine; Visit Provider Internal Medicine
DX: M25.531 Pain in right wrist (principal); M54.6 Pain in thoracic spine
CPT/HCPCS: 97014; 97110; 97140

== ENCOUNTER 2024-11-21 13:20 | Outpatient (REF) | payer OTHER, SELFPAY ==
[2024-11-21 16:13] LABS: MANUAL DIFF FLAG NO
[2024-11-21 16:32] LABS: Hematocrit 39.0 % (37.0-47.0); Hemoglobin 13.0 g/dl (12.0-16.0); Imm Gran Abs Auto 0.03 X10*3/uL (0.00-0.03); Imm Gran Pct Auto 0.4 % (0.0-0.4); Lymphocytes Absolute Auto 2.4 X10*3/uL (1.2-4.9); Mean Corpuscular HGB Conc 33.3 g/dl (31.0-35.0); Mean Corpuscular Hemoglobin 27.2 pg (27.0-33.0); Mean Corpuscular Volume 81.6 fL (80.0-98.0); NRBC Abs Auto 0.000 X10*3/uL (0.0-0.012); NRBC Pct Auto 0.0 /100WBC (0.0-0.2); Platelet Count 249 X10*3/uL (160-400); Red Blood Count 4.78 X10*6/uL (4.20-5.50); White Blood Count 7.3 X10*3/uL (4.8-10.8)
[2024-11-21 16:37] LABS: Hemoglobin A1C 174.7505 umol/L; Total Hemoglobin (HGBA1C) 3505.2458 umol/L
[2024-11-21 17:01] LABS: Alanine Aminotransferase 33 U/L (0-31); Albumin Level 4.2 g/dL (3.5-5.0); Alkaline Phosphatase 71 U/L (39-117); Anion Gap 10 (12-20); Aspartate Amino Transferase 25 U/L (5-31); Blood Urea Nitrogen 14 mg/dL (9-16); Calcium 9.3 mg/dL (8.4-10.2); Carbon Dioxide 26 mmol/L (22-29); Chloride 108 mmol/L (96-108); Estimated Glomerular Filt Rate > 60; Potassium 4.0 mmol/L (3.3-5.1); Sodium 140 mmol/L (135-145); Total Protein 6.4 g/dL (6.5-8.0)
[2024-11-21 17:06] LABS: Vitamin B12 298 pg/mL (200-900)
[2024-11-25 13:53] LABS: Vitamin D 25-OH, D2 <4 ng/mL; Vitamin D 25-OH, D3 24 ng/mL; Vitamin D 25-OH, Total 24 ng/mL (30-100)
== END 2024-11-21 13:21 | disposition home or self-care (01) ==
LOC: HO.HMGCLDS 13:20
PROVIDERS: PCP Internal Medicine; Visit Provider Internal Medicine
DX: J45.40 Moderate persistent asthma, uncomplicated (principal); R53.83 Other fatigue; K21.9 Gastro-esophageal reflux disease without esophagitis; M25.561 Pain in right knee; R20.0 Anesthesia of skin; E28.2 Polycystic ovarian syndrome; F41.9 Anxiety disorder, unspecified; G89.29 Other chronic pain; E55.9 Vitamin D deficiency, unspecified; R73.03 Prediabetes; J45.901 Unspecified asthma with (acute) exacerbation; Z86.32 Personal history of gestational diabetes
CPT/HCPCS: 36415; 80053; 82306; 82607; 83036; 83721; 84443; 85025; 99212

== ENCOUNTER 2024-11-21 13:20 | Outpatient (AMB) | payer OTHER, SELFPAY ==
[2024-11-21 13:24] VITALS: BP 108/70; PULSE 68; O2SAT 98; BMI 35.6
--- NOTE | 2024-11-21 13:24 | MHC.PC.OV ---
Vital Signs 11/21/24 13:24 Height 5 ft 3 in Weight 201 lb BMI 35.6 BP 108/70 Blood Pressure Location Lt brachial Position Sitting Pulse 68 Pulse Source Pulse Oximeter Pulse Oximetry (%) 98 Intake Visit Reasons: Fatigue Timber Framer Helper Required: No Allergies penicillin V Allergy (Unknown, Verified 11/21/24 13:27) rash Medication List - Last Reconciled 11/21/24 by Bethanie Kline MD albuterol sulfate 90 mcg/actuation (Ventolin HFA) 2 puffs inhalation QID PRN 30 days blood sugar diagnostic ([employer] Ultra Test strips) Once a day blood-glucose meter ([employer] Ultra2 Meter) Once a day fluticasone furoate-vilanterol 200-25 mcg/dose (Breo Ellipta) 1 inh inhalation DAILY 30 days lancets ([employer] Delica Lancets) Once a day Symbicort 160-4.5 mcg/actuation (budesonide-formoterol) 2 puffs inhalation BID 30 days NS Tobacco use date assessed: 07/05/24 Dental Screening Dental Screen Date: 07/05/24 HPI Fatigue HPI Details Chief Complaint The patient presents with severe tiredness and generalized bone pain for the past two to three months, along with a recent increase in acid reflux symptoms. History of Present Illness The patient is a 34-year-old female presenting with persistent fatigue, musculoskeletal pain, and recent bouts of heartburn. Persistent Fatigue: - Onset: Approximately two to three months ago - Description: Feeling of extreme tiredness - Associated Symptoms: None specified - Course: Ongoing - Impact: Affects daily functioning Musculoskeletal Pain: - Onset: Approximately two to three months ago - Description: Generalized bone pain, no specific location highlighted - Course: Persistent and unresolved - Impact: Affects physical activity Acid Reflux: - Onset: Recent exacerbation - Description: Heartburn, association with dietary triggers - Aggravating Factors: Consumption of tomato products and spicy foods, eating close to bedtime Right Knee Pain: - Onset: Injury last year with pain persisting - Inciting Event: Fall causing severe pain and subsequent brace placement - Description: Pain mentioned as more localized in the back of the knee, possibly suggesting ligament involvement - Course: Persistent pain noted with activity such as playing basketball Numbness in Lower Body: - Onset: Not specified - Description: Numbness from the waist down - Previous Evaluation: EMG referral to neurology was issued but not completed Weight Gain and PCOS History: - Weight: Recent weight increase noted - Associated Conditions: History of PCOS and previous gestational diabetes - Course: Weight gain despite reduced consumption and increased awareness of dietary intake Anxiety: - History: Pre-existing anxiety with family history of cancer causing increased worry - Past Treatment: Previously prescribed sertraline with noted improvement before discontinuation Medical History: - History of asthma, no recent exacerbations reported - PCOS (Polycystic Ovary Syndrome) - Gestational diabetes during - History of anxiety. Social History: - Smoking: Former smoker, currently ceased - Activity Level: Limited due to knee pain; incidental activity includes playing basketball - Weight concerns with attempts at dietary control and weight management - Anxiety concerning family history of cancer Diagnostic Results: - Labs: Not completed since December of the previous year - Imaging: X-ray of knee performed after injury last year - Tests and Diagnostics: EMG referral issued by not completed Problem List - Fatigue - Musculoskeletal pain - Gastroesophageal reflux disease (GERD) - Knee pain post-injury - Numbness in lower extremities - Weight gain associated with PCOS - Anxiety Patient Instructions - Schedule and complete recommended blood work to evaluate thyroid function and vitamin D levels - Avoid foods with tomatoes and hot sauces to manage heartburn; refrain from eating before bedtime - Follow up with orthopedic for knee pain evaluation - Contact provided neurologist for numbness evaluation - Consider resuming prescribed sertraline for anxiety management - Call weight management program for evaluation on weight management strategies Review of Systems - General: No fever no chills - Neurological: No headaches no dizziness - Ear nose throat: No sore throat no hearing difficulty no ear pain - Cardiovascular: No syncope, no chest pain, no palpitations - Gastrointestinal: No nausea vomiting or diarrhea - Endocrine: No polyuria polydipsia no heat intolerance - Genitourinary: No dysuria , no blood in urine Physical Exam General: No acute distress HEENT: No acute findings Neck: Supple Respiratory system: Able to talk in full sentences, no audible wheeze Cardiovascular: S1-S2 regular in rate and rhythm Gastrointestinal: No pain , BS + Extremities: Right knee pain, chronic WATCH AND CLOCK REPAIR CLERK: Alert awake oriented x3 motor sensory intact Skin: Normal turgor [facility] Medical History REMI II (cervical intraepithelial neoplasia II) REMI I (cervical intraepithelial neoplasia I) BMI 35.0-35.9,adult Umbilical hernia Obesity Tired Vitamin D deficiency Asthma PCOS (polycystic ovarian syndrome) Anxiety Surgical History H/O cervical polypectomy No pertinent past surgical history Family History Father Unknown family medical history Mother Internal bleeding Maternal Grandmother Colon cancer Maternal Grandfather Colon cancer Paternal Grandfather No problems noted. Paternal Grandmother No problems noted. Sister Cervical cancer Other Mental health disorder Substance use disorder Social History Housing: Apartment Alcohol intake: unknown Patient Tobacco Use Status: Current everyday Tobacco user Cigarettes Per Day: 6 Years Smoked: 10 e-Cigarette/Vaping Use: Never Used service: No Current occupational status: employed Cognitive needs: No Hearing needs: No Vision needs: Yes Female Reproductive History Menstrual Age of Menarche: 10 Questionnaire Thrive Questionnaire Date Thrive assessed: 07/05/24 I am a: Patient What is your living situation today?: I have a steady place to live Within the past 12 months, did the food you bought not last and you didn't have the money to get more?: Never true Within the past 12 months, did you worry whether your food would run out before you got money to buy more?: Never true Do you have trouble paying for medicines?: No Do you have trouble getting transportation to medical appointments?: No Do you have trouble paying your heating and electricity bill?: No Do you have trouble taking care of your child, family member or friend?: No Do you have trouble with day-to-day activities such as bathing, preparing meals, shopping, managing finances, etc.?: No Are you currently unemployed and looking for a job?: Yes Are you interested in more education?: No Please select the resources that you would like help with: None Currently or been in a relationship where the following occur: No concerns reported THRIVE Score: 0 AUDIT C Alcohol Use Questionnaire (AUDIT-C) 1. How often do you have a drink containing alcohol?: Monthly or less 2. How many drinks containing alcohol do you have on a typical day when you are drinking?: 1 or 2 3. How often do you have six or more drinks on one occasion?: Less than monthly Total Score: 2 Score Reviewed/Action Taken: Yes MAURICIO-7 AMB Questionnaire MAURICIO-7 Date MAURICIO - 7 assessed: 07/05/24 Source: Developed by Drs. Olivier Barbosa, Mary Purcell, Sandor Fair and colleagues, with an educational lamont from [employer] Fairly. Physical exam (Primary Care) Vital Signs: Last Vital Signs Pulse 68 11/21/24 13:24 BP 108/70 11/21/24 13:24 Pulse Ox 98 11/21/24 13:24 BMI result Body Mass Index 35.6 Tobacco/Smoking Status: Tobacco use Status Tobacco use date assessed 07/05/24 11/21/24 13:26 Patient Tobacco Use Status Current everyday Tobacco 11/21/24 13:26 e-Cigarette/Vaping Use Never Used 11/21/24 13:26 Thrive Assessment: Date of Thrive Assessment Date Thrive assessed 07/05/24 11/21/24 13:26 Currently or been in a relationship where the following occur: No concerns reported Coding Level of Care Code Est Pt Level 4 (59481) Diagnoses Tired R53.83 Chronic pain of right knee M25.561; G89.29 Laterality: right History of gestational diabetes Z86.32 Moderate persistent asthma without complication J45.40 Asthma complication type: uncomplicated Vitamin D deficiency E55.9 Anxiety F41.9 Pre-diabetes R73.03 Assessment & Plan Assessment & Plan (1) Tired: Code(s): R53.83 - Other fatigue Category: Medical (2) Knee pain, chronic: Code(s): M25.569 - Pain in unspecified knee; G89.29 - Other chronic pain Category: Medical Qualifiers: Laterality: right Qualified Code(s): M25.561 - Pain in right knee; G89.29 - Other chronic pain (3) History of gestational diabetes: Code(s): Z86.32 - Personal history of gestational diabetes Category: Medical (4) Asthma, moderate persistent: Code(s): J45.40 - Moderate persistent asthma, uncomplicated Category: Medical Qualifiers: Asthma complication type: uncomplicated Qualified Code(s): J45.40 - Moderate persistent asthma, uncomplicated (5) Vitamin D deficiency: Code(s): E55.9 - Vitamin D deficiency, unspecified Category: Medical (6) Anxiety: Code(s): F41.9 - Anxiety disorder, unspecified Category: Medical (7) Pre-diabetes: Code(s): R73.03 - Prediabetes Category: Medical Plan Chief Complaint The patient presents with severe tiredness and generalized bone pain for the past two to three months, along with a recent increase in acid reflux symptoms. History of Present Illness The patient is a 34-year-old female presenting with persistent fatigue, musculoskeletal pain, and recent bouts of heartburn. Persistent Fatigue: - Onset: Approximately two to three months ago - Description: Feeling of extreme tiredness - Associated Symptoms: None specified - Course: Ongoing - Impact: Affects daily functioning Musculoskeletal Pain: - Onset: Approximately two to three months ago - Description: Generalized bone pain, no specific location highlighted - Course: Persistent and unresolved - Impact: Affects physical activity Acid Reflux: - Onset: Recent exacerbation - Description: Heartburn, association with dietary triggers - Aggravating Factors: Consumption of tomato products and spicy foods, eating close to bedtime Right Knee Pain: - Onset: Injury last year with pain persisting - Inciting Event: Fall causing severe pain and subsequent brace placement - Description: Pain mentioned as more localized in the back of the knee, possibly suggesting ligament involvement - Course: Persistent pain noted with activity such as playing basketball Numbness in Lower Body: - Onset: Not specified - Description: Numbness from the waist down - Previous Evaluation: EMG referral to neurology was issued but not completed Weight Gain and PCOS History: - Weight: Recent weight increase noted - Associated Conditions: History of PCOS and previous gestational diabetes - Course: Weight gain despite reduced consumption and increased awareness of dietary intake Anxiety: - History: Pre-existing anxiety with family history of cancer causing increased worry - Past Treatment: Previously prescribed sertraline with noted improvement before discontinuation Medical History: - History of asthma, no recent exacerbations reported - PCOS (Polycystic Ovary Syndrome) - Gestational diabetes during - History of anxiety. Social History: - Smoking: Former smoker, currently ceased - Activity Level: Limited due to knee pain; incidental activity includes playing basketball - Weight concerns with attempts at dietary control and weight management - Anxiety concerning family history of cancer Diagnostic Results: - Labs: Not completed since December of the previous year - Imaging: X-ray of knee performed after injury last year - Tests and Diagnostics: EMG referral issued by not completed Problem List - Fatigue - Musculoskeletal pain - Gastroesophageal reflux disease (GERD) - Knee pain post-injury - Numbness in lower extremities - Weight gain associated with PCOS - Anxiety Patient Instructions - Schedule and complete recommended blood work to evaluate thyroid function and vitamin D levels - Avoid foods with tomatoes and hot sauces to manage heartburn; refrain from eating before bedtime - Follow up with orthopedic for knee pain evaluation - Contact provided neurologist for numbness evaluation - Consider resuming prescribed sertraline for anxiety management - Call weight management program for evaluation on weight management strategies Orders: Orders Complete Blood Count Auto Diff Today E55.9 - Vitamin D deficiency, unspecified, G89.29 - Other chronic pain, J45.901 - Unspecified asthma with (acute) exacerbation, M25.569 - Pain in unspecified knee, R53.83 - Other fatigue, Z86.32 - Personal history of gestational diabetes Comprehensive Met. Panel Today E55.9 - Vitamin D deficiency, unspecified, G89.29 - Other chronic pain, J45.901 - Unspecified asthma with (acute) exacerbation, M25.569 - Pain in unspecified knee, R53.83 - Other fatigue, Z86.32 - Personal history of gestational diabetes TSH reflex Free T4 Today E55.9 - Vitamin D deficiency, unspecified, G89.29 - Other chronic pain, J45.901 - Unspecified asthma with (acute) exacerbation, M25.569 - Pain in unspecified knee, R53.83 - Other fatigue, Z86.32 - Personal history of gestational diabetes Hemoglobin A1c Today Z86.32 - Personal history of gestational diabetes LDL Cholesterol Direct Today E55.9 - Vitamin D deficiency, unspecified, G89.29 - Other chronic pain, J45.901 - Unspecified asthma with (acute) exacerbation, M25.569 - Pain in unspecified knee, R53.83 - Other fatigue, Z86.32 - Personal history of gestational diabetes Vitamin D 25-OH (D2 and D3) Today E55.9 - Vitamin D deficiency, unspecified, G89.29 - Other chronic pain, J45.901 - Unspecified asthma with (acute) exacerbation, M25.569 - Pain in unspecified knee, R53.83 - Other fatigue, Z86.32 - Personal history of gestational diabetes Vitamin B12 Today E55.9 - Vitamin D deficiency, unspecified, G89.29 - Other chronic pain, J45.901 - Unspecified asthma with (acute) exacerbation, M25.569 - Pain in unspecified knee, R53.83 - Other fatigue, Z86.32 - Personal history of gestational diabetes Referrals Orthopedics Referral G89.29 - Other chronic pain, M25.569 - Pain in unspecified knee Medications: New sertraline 25 mg PO DAILY 90 tabs 0RF Refilled omeprazole 20 mg PO DAILY 90 caps 0RF 90 days R12 - Heartburn Discontinued fluticasone furoate-vilanterol 200-25 mcg/dose (Breo Ellipta) Discontinued Reason: Doctor's Order 1 inh inhalation DAILY 30 days 28 ea 0RF
--- OUTSIDE RECORDS SUMMARY | 2024-11-21 14:36 | XMS_ITS | Encounter Summary ---
Author Organization [facility] Address [address] [place] [address] Phone Care Team Providers Care Motor Equipment Commanding Officer Name Role Phone Ascencion Stewart MD Primary Care Provider [phone] Encounter Details Date Type Department Care Team (Late st Contact Info) Description 11/19/2016 Conversion Encounter [facility] [place] [address] [place] [address] Social History Tobacco Use Types Packs/Day Years [...] on filedocumented in this encounter Care Teams Motor Equipment Commanding Officer Relationship Specialty Start Date End Date Ascencion Stewart MD [address] [place] [address] PCP - General 11/13/16 06/23/22 documented as of this encounter
== END 2024-11-21 13:46 | disposition home or self-care (01) ==
LOC: HO.HMCC 13:21
PROVIDERS: PCP Internal Medicine; Visit Provider Internal Medicine
DX: R53.83 Other fatigue (principal); M25.561 Pain in right knee; G89.29 Other chronic pain; Z86.32 Personal history of gestational diabetes; J45.40 Moderate persistent asthma, uncomplicated; E55.9 Vitamin D deficiency, unspecified; F41.9 Anxiety disorder, unspecified; R73.03 Prediabetes

== ENCOUNTER 2024-12-26 12:14 | Outpatient (AMB) | payer OTHER, SELFPAY ==
--- NOTE | 2024-12-26 12:17 | MHC.PC.OV ---
Vital Signs 12/26/24 12:18 Height 5 ft 3 in Weight 204 lb BMI 36.1 BP 108/78 Blood Pressure Location Lt brachial Position Sitting Pulse 69 Pulse Source Pulse Oximeter Pulse Oximetry (%) 97 Oxygen Delivery Method Room Air Intake Visit Reasons: 2 week follow up Emergency Registrar Required: No Allergies penicillin V Allergy (Unknown, Verified 12/26/24 12:18) rash Medication List - Last Reconciled 12/26/24 by Bethanie Kline MD albuterol sulfate 90 mcg/actuation (Ventolin HFA) 2 puffs inhalation QID PRN 30 days blood sugar diagnostic (Ed[employer]zzleuch Ultra Test strips) Once a day blood-glucose meter (EdPuzzleuch Ultra2 Meter) Once a day lancets (EdPuzzleuch Delica Lancets) Once a day omeprazole 20 mg PO DAILY 90 days sertraline 25 mg PO DAILY Symbicort 160-4.5 mcg/actuation (budesonide-formoterol) 2 puffs inhalation BID 30 days NS Tobacco use date assessed: 07/05/24 Dental Screening Dental Screen Date: 07/05/24 HPI 2 week follow up HPI Details History The patient is a 34-year-old female presenting with diabetes, musculoskeletal pain due to spasm, and medication management. Diabetes: - Last A1c was 5.8 in August of the previous year, currently 6.7. - Described as diet-controlled; - Family history present which may contribute to the condition.. - No current medication required for diabetes as per conversation, provided diet remains controlled. Musculoskeletal Pain (Spasm): - Reports severe muscle spasms in the back, possibly due to the position while sleeping. - The muscle spasm is severe enough to cause significant discomfort and concern. - Related to the care of an kqyoa-lgvkt-zdx baby, potentially altered sleeping positions. - The patient experiences significant pain and discomfort. Located lumbar area left side Anxiety/depression: Much better since started sertraline 25 mg 2 weeks ago we will be continuing that for now Medication Management: - continue sertraline, vitamin D supplementation, muscle relaxers, asthma inhaler, and omeprazole. - Vitamin D levels are low, and supplementation is advised. - Muscle relaxers may cause drowsiness and should be used with caution. - Asthma management is through an inhaler, with decreased usage since reduced smoking. - Omeprazole is taken for gastrointestinal reflux, with increased recent use. Medical History: - Diabetes mellitus (diet-controlled) - Asthma, managed with an inhaler - Gastroesophageal reflux disease, managed with omeprazole - Depression, managed with sertraline Social History: - Family: Has an ogavf-hfkwc-yqa child. - Smoking: Stopped smoking, which has corresponded with reduced use of the asthma inhaler. Family History: - Family history of diabetes Problem List - Diabetes mellitus - Acute back pain due to muscle spasm - Asthma - Gastroesophageal reflux disease - Depression Diagnostic results - Labs: A1c level 6.7, vitamin D deficiency noted - Electrolytes and kidney function tests are normal. - Complete blood count is within normal limits, no anemia present. Patient Instructions - Follow a healthy diet to manage diabetes and avoid medications. - Take vitamin D supplements as prescribed. - Use muscle relaxers cautiously due to sedative effects. - Monitor and manage asthma with inhaler as needed. - Use omeprazole as required for reflux symptoms. - Consider using a back brace for muscle spasm support during the day. - Attend upcoming appointments with [facility] and orthopedics as scheduled. Review of Systems General: No fever no chills neurological: No headaches no dizziness ear nose throat: No sore throat no hearing difficulty no ear pain cardiovascular: No syncope, no chest pain, no palpitations gastrointestinal: No nausea vomiting or diarrhea endocrine: No polyuria polydipsia no heat intolerance genitourinary: No dysuria skin: No new complaints Physical Exam general: No acute distress HEENT: No acute findings neck: Supple respiratory system: Able to talk in full sentences, no audible wheeze no stridor cardiovascular: S1-S2 RRR gastrointestinal: No pain extremities: No new findings Back: No pain with percussion spasms located lumbar area left side LABORER PIPELINE: Alert awake oriented x3 motor sensory intact skin: Normal turgor Patient was informed and verbally consented to the use of an ambient scribe for clinic note documentation during this visit. [facility] Medical History REMI II (cervical intraepithelial neoplasia II) REMI I (cervical intraepithelial neoplasia I) BMI 35.0-35.9,adult Umbilical hernia Obesity Tired Vitamin D deficiency Asthma PCOS (polycystic ovarian syndrome) Anxiety Surgical History H/O cervical polypectomy No pertinent past surgical history Family History Father Unknown family medical history Mother Internal bleeding Maternal Grandmother Colon cancer Maternal Grandfather Colon cancer Paternal Grandfather No problems noted. Paternal Grandmother No problems noted. Sister Cervical cancer Other Mental health disorder Substance use disorder Social History Housing: Apartment Alcohol intake: unknown Patient Tobacco Use Status: Current everyday Tobacco user Cigarettes Per Day: 6 Years Smoked: 10 Packs per year/per ci.00 e-Cigarette/Vaping Use: Never Used service: No Current occupational status: employed Cognitive needs: No Hearing needs: No Vision needs: Yes Female Reproductive History Menstrual Age of Menarche: 10 Questionnaire PHQ-9 Over the last 2 weeks, how often have you been bothered by any of the following problems? 1. Little interest or pleasure in doing things: not at all 2. Feeling down, depressed, or hopeless: not at all 3. Trouble falling or staying asleep, or sleeping too much: not at all 4. Feeling tired or having little energy: not at all 5. Poor appetite or overeating: not at all 6. Feeling bad about yourself - or that you are a failure or have let yourself or your family down: not at all 7. Trouble concentrating on things, such as reading the newspaper or watching television: not at all 8. Moving or speaking so slowly that other people could have noticed. Or the opposite - being so fidgety or restless that you have been moving around a lot more than usual: not at all 9. Thoughts that you would be better off or of hurting yourself in some way: not at all Total score: 0 Depression Screening Interpretation: Negative Depression Screening Done: Yes 85683 - PHQ-9 Billing: Yes Source: Developed by Drs. Olivier Barbosa, Mary Purcell, Sandor Fair and colleagues, with an educational lamont from [employer]. Thrive Questionnaire Date Thrive assessed: 07/05/24 I am a: Patient What is your living situation today?: I have a steady place to live Within the past 12 months, did the food you bought not last and you didn't have the money to get more?: Never true Within the past 12 months, did you worry whether your food would run out before you got money to buy more?: Never true Do you have trouble paying for medicines?: No Do you have trouble getting transportation to medical appointments?: No Do you have trouble paying your heating and electricity bill?: No Do you have trouble taking care of your child, family member or friend?: No Do you have trouble with day-to-day activities such as bathing, preparing meals, shopping, managing finances, etc.?: No Are you currently unemployed and looking for a job?: Yes Are you interested in more education?: No Please select the resources that you would like help with: None Currently or been in a relationship where the following occur: No concerns reported THRIVE Score: 0 AUDIT C Alcohol Use Questionnaire (AUDIT-C) 1. How often do you have a drink containing alcohol?: Monthly or less 2. How many drinks containing alcohol do you have on a typical day when you are drinking?: 1 or 2 3. How often do you have six or more drinks on one occasion?: Less than monthly Total Score: 2 MAURICIO-7 AMB Questionnaire MAURICIO-7 Date MAURICIO - 7 assessed: 07/05/24 Feeling nervous, anxious, or on edge: 0 = Not at all Not being able to stop or control worryin = Not at all Worrying too much about different things: 0 = Not at all Trouble relaxin = Not at all Being so restless that it is hard to sit still: 0 = Not at all Becoming easily annoyed or irritable: 0 = Not at all Feeling afraid as if something awful might happen: 0 = Not at all Total MAURICIO-7 score (0-4 normal; 5-9 mild; 10-14 moderate; 15-21 severe): 0 Source: Developed by Drs. Olivier Barbosa, Mary Purcell, Sandor Fair and colleagues, with an educational lamont from [employer]. MAURICIO-7 Assessment Billing MAURICIO-7 Assessment Tool: MAURICIO-7 Assessment 68144 Physical exam (Primary Care) Vital Signs: Last Vital Signs Pulse 69 12/26/24 12:18 BP 108/78 12/26/24 12:18 Pulse Ox 97 12/26/24 12:18 Oxygen Delivery Method Room Air 12/26/24 12:18 BMI result Body Mass Index 36.1 Tobacco/Smoking Status: Tobacco use Status Tobacco use date assessed 07/05/24 12/26/24 12:22 Patient Tobacco Use Status Current everyday Tobacco 12/26/24 12:22 e-Cigarette/Vaping Use Never Used 12/26/24 12:22 PHQ-9: PHQ-9 Score PHQ-9: Total score 0 12/26/24 12:38 Depression Screening Interpretation: Negative Thrive Assessment: Date of Thrive Assessment Date Thrive assessed 07/05/24 12/26/24 12:22 Currently or been in a relationship where the following occur: No concerns reported Coding Level of Care Code Est Pt Level 4 (06727) Complex EM visit Add On G2211 Diagnoses Type 2 diabetes mellitus without complication, without long-term current use of insulin E11.9 Diabetes mellitus type: type 2 Diabetes mellitus custodial insulin use: without intermediate project manager use Diabetes mellitus complication status: without complication Moderate persistent asthma without complication J45.40 Asthma complication type: uncomplicated Lumbar paraspinal muscle spasm M62.830 Recurrent major depressive disorder, in partial remission F33.41 Active/Remission status: in partial remission Anxiety F41.9 Vitamin D deficiency E55.9 Chronic GERD K21.9 Additional Codes PHQ-9 - 85929 - PHQ-9 Billing: Yes ([id number]) MAURICIO-7 Assessment Billing - MAURICIO-7 Assessment Tool: MAURICIO-7 Assessment 18343 ([id number]) Assessment & Plan Assessment & Plan (1) Diabetes mellitus: Code(s): E11.9 - Type 2 diabetes mellitus without complications Category: Medical Qualifiers: Diabetes mellitus type: type 2 Diabetes mellitus custodial insulin use: without intermediate project manager use Diabetes mellitus complication status: without complication Qualified Code(s): E11.9 - Type 2 diabetes mellitus without complications (2) Asthma, moderate persistent: Code(s): J45.40 - Moderate persistent asthma, uncomplicated Category: Medical Qualifiers: Asthma complication type: uncomplicated Qualified Code(s): J45.40 - Moderate persistent asthma, uncomplicated (3) Lumbar paraspinal muscle spasm: Code(s): M62.830 - Muscle spasm of back Category: Medical (4) Major depression, recurrent: Code(s): F33.9 - Major depressive disorder, recurrent, unspecified Category: Medical Qualifiers: Active/Remission status: in partial remission Qualified Code(s): F33.41 - Major depressive disorder, recurrent, in partial remission (5) Anxiety: Code(s): F41.9 - Anxiety disorder, unspecified Category: Medical (6) Vitamin D deficiency: Code(s): E55.9 - Vitamin D deficiency, unspecified Category: Medical (7) Chronic GERD: Code(s): K21.9 - Gastro-esophageal reflux disease without esophagitis Category: Medical Plan History The patient is a 34-year-old female presenting with diabetes, musculoskeletal pain due to spasm, and medication management. Diabetes: - Last A1c was 5.8 in August of the previous year, currently 6.7. - Described as diet-controlled; - Family history present which may contribute to the condition.. - No current medication required for diabetes as per conversation, provided diet remains controlled. Musculoskeletal Pain (Spasm): - Reports severe muscle spasms in the back, possibly due to the position while sleeping. - The muscle spasm is severe enough to cause significant discomfort and concern. - Related to the care of an ckzvb-oazwx-qhh baby, potentially altered sleeping positions. - The patient experiences significant pain and discomfort. Located lumbar area left side Anxiety/depression: Much better since started sertraline 25 mg 2 weeks ago we will be continuing that for now Medication Management: - continue sertraline, vitamin D supplementation, muscle relaxers, asthma inhaler, and omeprazole. - Vitamin D levels are low, and supplementation is advised. - Muscle relaxers may cause drowsiness and should be used with caution. - Asthma management is through an inhaler, with decreased usage since reduced smoking. - Omeprazole is taken for gastrointestinal reflux, with increased recent use. Medical History: - Diabetes mellitus (diet-controlled) - Asthma, managed with an inhaler - Gastroesophageal reflux disease, managed with omeprazole - Depression, managed with sertraline Social History: - Family: Has an aqjnl-tzncq-ksk child. - Smoking: Stopped smoking, which has corresponded with reduced use of the asthma inhaler. Family History: - Family history of diabetes Problem List - Diabetes mellitus - Acute back pain due to muscle spasm - Asthma - Gastroesophageal reflux disease - Depression Diagnostic results - Labs: A1c level 6.7, vitamin D deficiency noted - Electrolytes and kidney function tests are normal. - Complete blood count is within normal limits, no anemia present. Patient Instructions - Follow a healthy diet to manage diabetes and avoid medications. - Take vitamin D supplements as prescribed. - Use muscle relaxers cautiously due to sedative effects. - Monitor and manage asthma with inhaler as needed. - Use omeprazole as required for reflux symptoms. - Consider using a back brace for muscle spasm support during the day. - Attend upcoming appointments with [facility] and orthopedics as scheduled. Medications: New cholecalciferol (vitamin D3) 25 mcg PO DAILY 90 caps 1RF 90 days baclofen 5 mg PO BEDTIME 30 tabs 0RF Refilled omeprazole 20 mg PO DAILY 90 caps 0RF 90 days R12 - Heartburn Symbicort 160-4.5 mcg/actuation (budesonide-formoterol) 2 puffs inhalation BID 10.2 grams 3RF 30 days NS J45.909 - Unspecified asthma, uncomplicated
[2024-12-26 12:18] VITALS: BP 108/78; PULSE 69; O2SAT 97; BMI 36.1
--- OUTSIDE RECORDS SUMMARY | 2024-12-26 15:09 | XMS_ITS | Encounter Summary ---
Author Organization [facility] Address [address] [place] [address] Phone Care Team Providers Care Professional Services Consultant Name Role Phone Ascencion Stewart MD Primary Care Provider [phone] Encounter Details Date Type Department Care Team (Late st Contact Info) Description 11/19/2016 Conversion Encounter [facility] [place] [address] [place] [address] Social History Tobacco Use Types Packs/Day Years [...] on filedocumented in this encounter Care Teams Professional Services Consultant Relationship Specialty Start Date End Date Ascencion Stewart MD [address] [place] [address] PCP - General 11/13/16 06/23/22 documented as of this encounter
--- OUTSIDE RECORDS SUMMARY | 2024-12-26 15:09 | XMS_ITS | Encounter Summary ---
Author Organization [facility] Address [address] [place] [phone] Phone Care Team Providers Care Boring Machine Operator Vertical Name Role Phone Ascencion Stewart MD Primary Care Provider [phone] Encounter Details Date Type Department Care Team (Late st Contact Info) Description 11/17/2009 Documentation [facility] [place] Family Medicine [address] [place] [address] Family Medicine, Physician [address] [place], [place] [phone] Social History Tobacco Use Types Packs/Day Years [...] on filedocumented in this encounter Care Teams Boring Machine Operator Vertical Relationship Specialty Start Date End Date Ascencion Stewart MD [address] [place] [address] BEENA Brumfield [address] PCP - General 11/13/16 06/23/22 documented as of this encounter
--- OUTSIDE RECORDS SUMMARY | 2024-12-26 15:09 | XMS_ITS | Clinical Summary ---
Author Organization [facility] Address [address] [place] [address] Phone Care Team Providers Care Glass Cut Off Supervisor Name Role Phone Unavailable Primary Care Provider [...] AM EDT Pulse - - Temperature 36.7 C (98 F) 09/26/2009 12:00 AM EDT Respiratory Rate - [...] 12/15/1993, Additional history exists Influenza Vaccines (#1) 2024 01/10/20, 04/20/2002, 04/20/2002 COVID-19 Vaccine ( season) 2024 HIB Vaccines Completed 08/01/1990, 04/08/1990 IPV Vaccines [...]
== END 2024-12-26 13:46 | disposition home or self-care (01) ==
LOC: HO.HMCC 12:15
PROVIDERS: PCP Internal Medicine; Visit Provider Internal Medicine
DX: E11.9 Type 2 diabetes mellitus without complications (principal); J45.40 Moderate persistent asthma, uncomplicated; M62.830 Muscle spasm of back; F33.41 Major depressive disorder, recurrent, in partial remission; F41.9 Anxiety disorder, unspecified; E55.9 Vitamin D deficiency, unspecified; K21.9 Gastro-esophageal reflux disease without esophagitis

== ENCOUNTER → 2024-12-26 12:14 | Outpatient (BNVA) | payer OTHER, SELFPAY | PROVIDERS: PCP Internal Medicine; Visit Provider Internal Medicine | DX: E11.9 Type 2 diabetes mellitus without complications (principal); F41.9 Anxiety disorder, unspecified; J45.40 Moderate persistent asthma, uncomplicated; M62.830 Muscle spasm of back; F33.41 Major depressive disorder, recurrent, in partial remission; E55.9 Vitamin D deficiency, unspecified; K21.9 Gastro-esophageal reflux disease without esophagitis; R12 Heartburn | CPT/HCPCS: 96127; 99212 ==

== ENCOUNTER 2025-01-02 08:41 | Outpatient (REF) | payer OTHER, SELFPAY ==
--- NOTE | ~2025-01-02 | XR_ITS ---
EXAMINATION: XR KNEE, RIGHT CLINICAL INFORMATION: M25.561 - Pain in right knee COMPARISON: August 11, 2023 TECHNIQUE: AP oblique and sunrise views of the right knee. FINDINGS: No acute cortical disruption or malalignment. Joint space narrowing involving mostly the medial compartment with sclerosis in the articular surface medial tibial plateau. No suprapatellar bursa joint effusion. No lytic or blastic lesions. No metallic or radiopaque foreign body. XR/XR knee RT 3V IMPRESSION: Mild medial compartment osteoarthrosis/osteoarthritis. Electronically signed by: Hola Davenport MD 01/02/2025 02:06 PM EDT
--- OUTSIDE RECORDS SUMMARY | 2025-01-03 09:18 | XMS_ITS | Clinical Summary ---
Author Organization [facility] Address [address] [place] [phone] Phone Care Team Providers Care Custom Home Installer Name Role Phone Unavailable Primary Care Provider [...]
--- OUTSIDE RECORDS SUMMARY | 2025-01-03 09:18 | XMS_ITS | Encounter Summary ---
Author Organization [facility] Address [address] [place] [address] Phone Care Team Providers Care Practice Manager Name Role Phone Ascencion Stewart MD Primary Care Provider [phone] Encounter Details Date Type Department Care Team (Late st Contact Info) Description 11/19/2016 Conversion Encounter [facility] [address] [place] [address] Social History Tobacco Use Types Packs/Day Years [...] on filedocumented in this encounter Care Teams Practice Manager Relationship Specialty Start Date End Date Ascencion Stewart MD [address] [place] [address] PCP - General 11/13/16 06/23/22 documented as of this encounter
--- OUTSIDE RECORDS SUMMARY | 2025-01-03 09:18 | XMS_ITS | Encounter Summary ---
Author Organization [facility] Address [address] [place] [address] Phone Care Team Providers Care Financial Processing Clerk Name Role Phone Ascencion Stewart MD Primary Care Provider [phone] Encounter Details Date Type Department Care Team (Late st Contact Info) Description 11/17/2009 Documentation [facility] [place] Family Medicine [address] [place] [address] Family Medicine, Physician [address] [place], [place] [id number] Social History Tobacco Use Types Packs/Day Years [...] on filedocumented in this encounter Care Teams Financial Processing Clerk Relationship Specialty Start Date End Date Ascencion Stewart MD [address] [place] [address] BEENA Brumfield [address] PCP - General 11/13/16 06/23/22 documented as of this encounter
== END 2025-01-02 08:42 | disposition home or self-care (01) ==
LOC: HO.HOSX 08:41
PROVIDERS: Visit Provider Orthopaedic Surgery
DX: M25.561 Pain in right knee (principal)
CPT/HCPCS: 73562; 99202

== ENCOUNTER 2025-01-02 13:52 | Outpatient (AMB) | payer OTHER, SELFPAY ==
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
[2025-01-02 14:10] VITALS: BMI 35.1
--- OUTSIDE RECORDS SUMMARY | 2025-01-02 15:16 | XMS_ITS | Encounter Summary ---
Author Organization [facility] Address [address] [place] [address] Phone Care Team Providers Care Desolderer Name Role Phone Ascencion Stewart MD Primary Care Provider [phone] Encounter Details Date Type Department Care Team (Late st Contact Info) Description 11/19/2016 Conversion Encounter [facility] [place] [address] [place] [address] Social History Tobacco Use Types Packs/Day Years [...] on filedocumented in this encounter Care Teams Desolderer Relationship Specialty Start Date End Date Ascencion Stewart MD [address] [place] [address] PCP - General 11/13/16 06/23/22 documented as of this encounter
--- OUTSIDE RECORDS SUMMARY | 2025-01-02 15:16 | XMS_ITS | Clinical Summary ---
Author Organization [facility] Address [address] [place] [address] Phone Care Team Providers Care Motor Vehicle Parts Interpreter Name Role Phone Unavailable Primary Care Provider [...] (#1) 2024 01/10/20, 04/20/2002, 04/20/2002 COVID-19 Vaccine (2024- season) 2024 HIB Vaccines Completed 08/01/1990, 04/08/1990 [...]
--- OUTSIDE RECORDS SUMMARY | 2025-01-02 15:16 | XMS_ITS | Encounter Summary ---
Author Organization [facility] Address [address] [place] [address] Phone Care Team Providers Care Engine Mechanic Name Role Phone Ascencion Stewart MD Primary Care Provider [phone] Encounter Details Date Type Department Care Team (Late st Contact Info) Description 11/17/2009 Documentation [facility] [place] [address] [place] [address] Family Medicine, Physician [address] [place], [place] [phone] Social History Tobacco Use Types Packs/Day Years [...] on filedocumented in this encounter Care Teams Engine Mechanic Relationship Specialty Start Date End Date Ascencion Stewart MD [address] [place] [address] [place] [address] PCP - General 11/13/16 06/23/22 documented as of this encounter
== END 2025-01-02 14:27 | disposition home or self-care (01) ==
LOC: HO.HOS 13:53
PROVIDERS: PCP Internal Medicine; Visit Provider Orthopaedic Surgery
DX: M25.561 Pain in right knee (principal)
CPT/HCPCS: 99203

== ENCOUNTER → 2025-01-02 13:57 | Outpatient (BNV) | payer OTHER, SELFPAY | PROVIDERS: Visit Provider Radiology Diagnostic Radiology | DX: M25.561 Pain in right knee (principal) | CPT/HCPCS: 73562 ==

== ENCOUNTER 2025-01-11 08:56 | Outpatient (AMB) | payer OTHER, SELFPAY ==
--- OUTSIDE RECORDS SUMMARY | 2025-01-11 09:29 | XMS_ITS | Continuity of Care Document ---
Author Organization [facility] Address [address] [place] [address] Problems Condition ICD9 code ICD10 code SNOMED code Start Date End Date S tatus Encounter for screening for other metabolic disorders Z13.228 Results No Results Allergies, adverse reactions, alerts No known allergies and adverse reactions Medications No administered medications reported Vital Signs No vital signs reported Social History No smoking Hx information available
--- OUTSIDE RECORDS SUMMARY | 2025-01-11 09:29 | XMS_ITS | Continuity of Care Document ---
Author Organization [facility] Address [address] [place] [id number] Problems Condition ICD9 code ICD10 code SNOMED code Start Date End Date S tatus Encounter for screening for other metabolic disorders Z13.228 Results No Results Allergies, adverse reactions, alerts No known allergies and adverse reactions Medications No administered medications reported Vital Signs No vital signs reported Social History No smoking Hx information available
--- NOTE | 2025-01-11 10:11 | MHC.PC.OV ---
Vital Signs 01/12/25 11:45 01/12/25 11:45 Height 5 ft 3 in 5 ft 3 in Weight 201 lb BMI 35.6 Intake Visit Reasons: mole on face/referral Allergies penicillin V Allergy (Unknown, Verified 01/02/25 14:08) rash Medication List - Last Reconciled 01/11/25 by Bethanie Kline MD albuterol sulfate 90 mcg/actuation (Ventolin HFA) 2 puffs inhalation QID PRN 30 days baclofen 5 mg PO BEDTIME blood sugar diagnostic ([employer] Ultra Test strips) Once a day blood-glucose meter ([employer] Ultra2 Meter) Once a day cholecalciferol (vitamin D3) 25 mcg PO DAILY 90 days lancets (ev3, IncTouch Delica Lancets) Once a day omeprazole 20 mg PO DAILY 90 days sertraline 25 mg PO DAILY Symbicort 160-4.5 mcg/actuation (budesonide-formoterol) 2 puffs inhalation BID 30 days NS Tobacco use date assessed: 07/05/24 Dental Screening Dental Screen Date: 07/05/24 HPI mole on face/referral HPI Details History of Present Illness The patient is a 34-year-old female presenting with a changing mole and overweight management in the context of diet-controlled diabetes. Changing Mole: - Patient reports noticing a change in a mole located on the right side of her chin. - She describes the mole as increasing in size, roughly approximating the size of a small pea. - No prior consultations with dermatologists for any dermatological issues. Overweight in the context of diet-controlled diabetes: - Patient is managing diabetes through dietary measures and is not currently on any diabetes medication. - She expresses interest in medical intervention for weight loss. - Current weight is noted to be 201 pounds, with a height of 5 feet 3 inches. - Reports hearing about Ozempic but not currently using any weight loss medications.. Problem List - Changing mole on the chin - obesity in the context of diet-controlled diabetes BMI is 35+ Plan - Initiate a referral to dermatology for evaluation and possible removal of the changing mole. The location and size are documented, and a referral process will be initiated. - Discussed and planned medical management for weight loss with phentermine 15 mg. Informed patient of the need for monthly follow-up visits to monitor progress and potential side effects. - Potential side effects of phentermine including tachycardia and palpitations were reviewed with the patient, advising discontinuation if adverse effects occur. - Nutritional consultation to be arranged to support dietary management in conjunction with pharmacotherapy. - Emphasized the importance of exercise and calorie counting in weight management. Follow-up 4 weeks Review of Systems - General: No fever no chills - Neurological: No headaches no dizziness - Ear nose throat: No sore throat no hearing difficulty no ear pain - Cardiovascular: No syncope, no chest pain, no palpitations - Gastrointestinal: No nausea vomiting or diarrhea - Endocrine: No polyuria polydipsia no heat intolerance - Genitourinary: No dysuria , no blood in urine [facility] Medical History REMI II (cervical intraepithelial neoplasia II) REMI I (cervical intraepithelial neoplasia I) BMI 35.0-35.9,adult Umbilical hernia Obesity Tired Vitamin D deficiency Asthma PCOS (polycystic ovarian syndrome) Anxiety Surgical History H/O cervical polypectomy No pertinent past surgical history Family History Father Unknown family medical history Mother Internal bleeding Maternal Grandmother Colon cancer Maternal Grandfather Colon cancer Paternal Grandfather No problems noted. Paternal Grandmother No problems noted. Sister Cervical cancer Other Mental health disorder Substance use disorder Social History Housing: Apartment Alcohol intake: unknown Patient Tobacco Use Status: Current everyday Tobacco user Cigarettes Per Day: 6 Years Smoked: 10 e-Cigarette/Vaping Use: Never Used service: No Current occupational status: employed Current occupation: [employer] Cognitive needs: No Hearing needs: No Vision needs: Yes Female Reproductive History Menstrual Age of Menarche: 10 Questionnaire Thrive Questionnaire Date Thrive assessed: 07/05/24 MAURICIO-7 AMB Questionnaire MAURICIO-7 Date MAURICIO - 7 assessed: 07/05/24 Source: Developed by Drs. Olivier Barbosa, Mary Purcell, Sandor Fair and colleagues, with an educational lamont from [employer]. Physical exam (Primary Care) Tobacco/Smoking Status: Tobacco use Status Tobacco use date assessed 07/05/24 01/11/25 10:14 Patient Tobacco Use Status Current everyday Tobacco 10/09/25 10:14 e-Cigarette/Vaping Use Never Used 01/11/25 10:14 Thrive Assessment: Date of Thrive Assessment Date Thrive assessed 07/05/24 01/11/25 10:14 Telehealth Telehealth Telehealth Platform: [email or web address] Location of provider rendering services: practice address Location of patient: address on file Patient Identification confirmed using: Name, : Yes Telehealth method: video Patient verbally consented to treatment: Yes Patient verbally consented to billing insurance company: Yes Patient informed of any privacy concerns related to visit: Yes Minutes spent on Phone/Video with Pt.: 13 Coding Level of Care Code Tele Est Pt Level 3 (43892) Diagnoses Type 2 diabetes mellitus without complication, without long-term current use of insulin E11.9 Diabetes mellitus type: type 2 Diabetes mellitus residential insulin use: without residential use Diabetes mellitus complication status: without complication Class 2 severe obesity due to excess calories with serious comorbidity and body mass index (BMI) of 35.0 to 35.9 in adult E66.812; Z68.35 Obesity classification: adult class 2 (BMI 35 - 39.9) Serious obesity comorbidity presence: with serious comorbidity Body mass index: BMI 35.0-35.9 Change in facial mole D22.30 Assessment & Plan Assessment & Plan (1) Diabetes mellitus: Code(s): E11.9 - Type 2 diabetes mellitus without complications Category: Medical Qualifiers: Diabetes mellitus type: type 2 Diabetes mellitus philanthropy officer insulin use: without philanthropy officer use Diabetes mellitus complication status: without complication Qualified Code(s): E11.9 - Type 2 diabetes mellitus without complications (2) Obesity due to excess calories: Code(s): E66.09 - Other obesity due to excess calories Category: Medical Qualifiers: Obesity classification: adult class 2 (BMI 35 - 39.9) Serious obesity comorbidity presence: with serious comorbidity Body mass index: BMI 35.0-35.9 Qualified Code(s): E66.812 - Obesity, class 2; Z68.35 - Body mass index [BMI] 35.0-35.9, adult (3) Change in facial mole: Code(s): D22.30 - Melanocytic nevi of unspecified part of face Category: Medical Plan History of Present Illness The patient is a 34-year-old female presenting with a changing mole and overweight management in the context of diet-controlled diabetes. Changing Mole: - Patient reports noticing a change in a mole located on the right side of her chin. - She describes the mole as increasing in size, roughly approximating the size of a small pea. - No prior consultations with dermatologists for any dermatological issues. Overweight in the context of diet-controlled diabetes: - Patient is managing diabetes through dietary measures and is not currently on any diabetes medication. - She expresses interest in medical intervention for weight loss. - Current weight is noted to be 201 pounds, with a height of 5 feet 3 inches. - Reports hearing about Ozempic but not currently using any weight loss medications.. Problem List - Changing mole on the chin - obesity in the context of diet-controlled diabetes BMI is 35+ Plan - Initiate a referral to dermatology for evaluation and possible removal of the changing mole. The location and size are documented, and a referral process will be initiated. - Discussed and planned medical management for weight loss with phentermine 15 mg. Informed patient of the need for monthly follow-up visits to monitor progress and potential side effects. - Potential side effects of phentermine including tachycardia and palpitations were reviewed with the patient, advising discontinuation if adverse effects occur. - Nutritional consultation to be arranged to support dietary management in conjunction with pharmacotherapy. - Emphasized the importance of exercise and calorie counting in weight management. Follow-up 4 weeks Orders: Referrals Dermatology Referral D22.30 - Melanocytic nevi of unspecified part of face [employer] Nutrition Referral E11.9 - Type 2 diabetes mellitus without complications, Z68.35 - Body mass index [BMI] 35.0-35.9, adult Medications: New phentermine must administer 2 hours after breakfast 15 mg PO DAILY 30 caps 0RF 30 days E11.9 - Type 2 diabetes mellitus without complications, Z68.35 - Body mass index [BMI] 35.0-35.9, adult
[2025-01-12 11:45] VITALS: BMI 35.6
== END 2025-01-11 11:41 | disposition home or self-care (01) ==
LOC: HO.HMCC 08:56
PROVIDERS: PCP Internal Medicine; Visit Provider Internal Medicine
DX: E11.9 Type 2 diabetes mellitus without complications (principal); E66.812 Obesity, class 2; Z68.35 Body mass index [BMI] 35.0-35.9, adult; D22.30 Melanocytic nevi of unspecified part of face

== ENCOUNTER 2025-01-30 19:52 | Outpatient (REF) | payer OTHER, SELFPAY ==
--- NOTE | ~2025-01-30 | MR_ITS ---
EXAMINATION: MR KNEE WITHOUT IV CONTRAST RIGHT HISTORY: S83.241A - Other tear of medial meniscus, current injury, right knee... COMPARISON: Correlation is made with plain films of the right knee dated 01/02/2025. TECHNIQUE: Coronal T1 and fat-suppressed proton density, sagittal proton density and fat-suppressed proton density, and axial fat suppressed T2 weighted MR images of the right knee were obtained. FINDINGS: Bone marrow: Bone marrow signal intensity is normal. Joint effusion: There is a small joint effusion. Smith's cyst: There is no Smith's cyst. Articular cartilage: Intact Muscles/soft tissues: The visualized muscles demonstrate normal signal intensity. Anterior cruciate ligament: There is thinning of, and increased signal intensity within the anterior cruciate ligament, which may represent a partial tear. Posterior cruciate ligament: Intact Medial collateral ligament: Intact Lateral collateral ligament: Intact Medial meniscus: Intact Lateral meniscus: Intact Flexor mechanism: The popliteus, gastrocnemius, and hamstring tendons are intact. Quadriceps tendon: Intact Patellar tendon: Intact Patellar retinacula: Intact MR/MR knee RT wo con IMPRESSION: Probable partial tear of the anterior cruciate ligament. Otherwise unremarkable MRI of the right knee. Electronically signed by: Olivier Mohan MD 01/31/2025 07:09 AM EDT
--- OUTSIDE RECORDS SUMMARY | 2025-01-30 20:29 | XMS_ITS | Encounter Summary ---
Author Organization [facility] Address [address] [place] [address] Phone Care Team Providers Care Wire Weaver Cloth Name Role Phone Ascencion Stewart MD Primary Care Provider [phone] Encounter Details Date Type Department Care Team (Late st Contact Info) Description 11/17/2009 Documentation [facility] [place] [address] [place] [address] Family Medicine, Physician [address] [place], [place] [phone] Social History Tobacco Use Types Packs/Day Years [...] on filedocumented in this encounter Care Teams Wire Weaver Cloth Relationship Specialty Start Date End Date Ascencion Stewart MD [address] [place] [address] [place] [address] PCP - General 11/13/16 06/23/22 documented as of this encounter
--- OUTSIDE RECORDS SUMMARY | 2025-01-30 20:29 | XMS_ITS | Encounter Summary ---
Author Organization [facility] Address [address] [place] [address] Phone Care Team Providers Care Plastic Shaper Name Role Phone Ascencion Stewart MD Primary Care Provider [phone] Encounter Details Date Type Department Care Team (Late st Contact Info) Description 11/19/2016 Conversion Encounter [facility] [place] [address] [place] [address] Social History Tobacco Use Types Packs/Day Years [...] on filedocumented in this encounter Care Teams Plastic Shaper Relationship Specialty Start Date End Date Ascencion Stewart MD [address] [place] [address] PCP - General 11/13/16 06/23/22 documented as of this encounter
--- OUTSIDE RECORDS SUMMARY | 2025-01-30 20:29 | XMS_ITS | Clinical Summary ---
Author Organization [facility] Address [address] [place] [address] Phone Care Team Providers Care Combiner Name Role Phone Unavailable Primary Care Provider [...]
== END 2025-01-30 19:53 | disposition home or self-care (01) ==
LOC: HO.MRI 19:52
PROVIDERS: Visit Provider Orthopaedic Surgery
DX: S83.241A Other tear of medial meniscus, current injury, right knee, initial encounter (principal)
CPT/HCPCS: 73721

== ENCOUNTER → 2025-01-30 20:04 | Outpatient (BNV) | payer OTHER, SELFPAY | PROVIDERS: Visit Provider Radiology Diagnostic Radiology | DX: S83.241A Other tear of medial meniscus, current injury, right knee, initial encounter (principal) | CPT/HCPCS: 73721 ==

== ENCOUNTER 2025-03-15 08:27 | Outpatient (AMB) | payer OTHER, SELFPAY ==
[2025-03-15 09:48] VITALS: BMI 35.1
--- NOTE | 2025-03-15 09:48 | MHC.PC.OV ---
Vital Signs 03/15/25 09:48 Height 5 ft 3 in Weight 198 lb BMI 35.1 Intake Visit Reasons: referral for back/neck pain, GLP1 Allergies penicillin V Allergy (Unknown, Verified 01/02/25 14:08) rash Medication List - Last Reconciled 03/15/25 by Bethanie Kline MD albuterol sulfate 90 mcg/actuation (Ventolin HFA) 2 puffs inhalation QID PRN 30 days baclofen 5 mg PO BEDTIME blood sugar diagnostic ([employer]) [employer] Ultra Test strips) Once a day blood-glucose meter ([employer] (P) [employer]ch Ultra2 Meter) Once a day cholecalciferol (vitamin D3) 25 mcg PO DAILY 90 days lancets ([employer]Touch Delica Lancets) Once a day omeprazole 20 mg PO DAILY 90 days phentermine 15 mg PO DAILY 30 days sertraline 25 mg PO DAILY Symbicort 160-4.5 mcg/actuation (budesonide-formoterol) 2 puffs inhalation BID 30 days NS Tobacco use date assessed: 07/05/24 Dental Screening Dental Screen Date: 07/05/24 HPI HPI Comments History of Present Illness Details History of Present Illness The patient is a 35 year old female presenting for a follow-up appointment regarding weight management. Obesity: - The patient's current weight is 198 lbs at a height of 5'3 , corresponding to a BMI of 35.1. - She was previously prescribed phentermine for weight loss but discontinued it after three days due to experiencing tongue numbness. - She is requesting a prescription for an injectable medication, specifically Zepbound, for weight management. Type 2 Diabetes Mellitus: - The patient has a history of type 2 diabetes mellitus. Medical History: - Type 2 diabetes mellitus - Obesity Medications: - Phentermine: Previously prescribed for weight management, but the patient discontinued it after 3 days due to side effects. [facility] Medical History REMI II (cervical intraepithelial neoplasia II) REMI I (cervical intraepithelial neoplasia I) BMI 35.0-35.9,adult Umbilical hernia Obesity Tired Vitamin D deficiency Asthma PCOS (polycystic ovarian syndrome) Anxiety Surgical History H/O cervical polypectomy No pertinent past surgical history Family History Father Unknown family medical history Mother Internal bleeding Maternal Grandmother Colon cancer Maternal Grandfather Colon cancer Paternal Grandfather No problems noted. Paternal Grandmother No problems noted. Sister Cervical cancer Other Mental health disorder Substance use disorder Social History Housing: Apartment Alcohol intake: unknown Patient Tobacco Use Status: Current everyday Tobacco user Cigarettes Per Day: 6 Years Smoked: 10 Packs per year/per ci.00 e-Cigarette/Vaping Use: Never Used service: No Current occupational status: employed Current occupation: [employer] Cognitive needs: No Hearing needs: No Vision needs: Yes Female Reproductive History Menstrual Age of Menarche: 10 Questionnaire Thrive Questionnaire Date Thrive assessed: 07/05/24 I am a: Patient What is your living situation today?: I have a steady place to live Within the past 12 months, did the food you bought not last and you didn't have the money to get more?: Never true Within the past 12 months, did you worry whether your food would run out before you got money to buy more?: Never true Do you have trouble paying for medicines?: No Do you have trouble getting transportation to medical appointments?: No Do you have trouble paying your heating and electricity bill?: No Do you have trouble taking care of your child, family member or friend?: No Do you have trouble with day-to-day activities such as bathing, preparing meals, shopping, managing finances, etc.?: No Are you currently unemployed and looking for a job?: Yes Are you interested in more education?: No Please select the resources that you would like help with: None Currently or been in a relationship where the following occur: No concerns reported THRIVE Score: 0 MAURICIO-7 AMB Questionnaire MAURICIO-7 Date MAURICIO - 7 assessed: 07/05/24 Source: Developed by Drs. Olivier Barbosa, Mary Purcell, Sandor Fair and colleagues, with an educational lamont from [employer] Review of Systems Narrative Review of Systems - Neurological: Reports tongue numbness after taking phentermine. - General: No fever no chills - Neurological: No headaches no dizziness - Ear nose throat: No sore throat no hearing difficulty no ear pain - Cardiovascular: No syncope, no chest pain, no palpitations - Gastrointestinal: No nausea vomiting or diarrhea - Endocrine: No polyuria polydipsia no heat intolerance - Genitourinary: No dysuria , no blood in urine Physical exam (Primary Care) BMI result Body Mass Index 35.1 Tobacco/Smoking Status: Tobacco use Status Tobacco use date assessed 07/05/24 03/15/25 09:49 Patient Tobacco Use Status Current everyday Tobacco 03/15/25 09:49 e-Cigarette/Vaping Use Never Used 03/15/25 09:49 Thrive Assessment: Date of Thrive Assessment Date Thrive assessed 07/05/24 03/15/25 09:49 Currently or been in a relationship where the following occur: No concerns reported Telehealth Telehealth Telehealth Platform: [email or web address] Location of provider rendering services: practice address Location of patient: address on file Patient Identification confirmed using: Name, : Yes Telehealth method: video Patient verbally consented to treatment: Yes Patient verbally consented to billing insurance company: Yes Patient informed of any privacy concerns related to visit: Yes Minutes spent on Phone/Video with Pt.: 13 Coding Level of Care Code Tele Est Pt Level 3 ([address]692) Diagnoses Diabetes mellitus type 2, noninsulin dependent E11.9 Class 2 severe obesity due to excess calories with serious comorbidity and body mass index (BMI) of 35.0 to 35.9 in adult E66.812; Z68.35 Body mass index: BMI 35.0-35.9 Obesity classification: adult class 2 (BMI 35 - 39.9) Serious obesity comorbidity presence: with serious comorbidity Adverse effect of phentermine, initial encounter T50.5X5A Encounter type: initial encounter Assessment & Plan Assessment & Plan (1) Diabetes mellitus type 2, noninsulin dependent: Code(s): E11.9 - Type 2 diabetes mellitus without complications Category: Medical (2) Obesity due to excess calories: Code(s): E66.09 - Other obesity due to excess calories Category: Medical Qualifiers: Body mass index: BMI 35.0-35.9 Obesity classification: adult class 2 (BMI 35 - 39.9) Serious obesity comorbidity presence: with serious comorbidity Qualified Code(s): E66.812 - Obesity, class 2; Z68.35 - Body mass index [BMI] 35.0-35.9, adult (3) Phentermine adverse reaction: Code(s): T50.5X5A - Adverse effect of appetite depressants, initial encounter Category: Medical Qualifiers: Encounter type: initial encounter Qualified Code(s): T50.5X5A - Adverse effect of appetite depressants, initial encounter Plan Problem List - Obesity - Type 2 diabetes mellitus Plan - A prescription for Zepbound will be sent to the patient's preferred pharmacy, [facility] on [address] in [place]. - The patient was informed that insurance approval is not guaranteed but may be more likely due to her history of type 2 diabetes and previous trial of phentermine. - The patient was counseled that a prior authorization will likely be required, which may take several days, and she will be notified of the outcome. - The patient was educated on potential side effects of Zepbound, including thyroid problems (rarely thyroid cancer), pancreatitis, severe constipation, and nausea. - If the medication is approved and obtained, the patient is to call the office to schedule an appointment with a nurse for training on self-administering the weekly subcutaneous injection. - The patient was advised on the importance of concurrent lifestyle modifications, including diet control, calorie calculation, and exercise, for the medication to be effective. - The patient was instructed to use the patient portal to send a secure message if she remembers any other questions. Medications: New Zepbound (tirzepatide (weight loss)) for 4 weeks 2.5 mg (0.5 mL) subcut QWEEK 2.5 mL 0RF 30 days NS E11.9 - Type 2 diabetes mellitus without complications, E66.812 - Obesity, class 2, T50.5X5A - Adverse effect of appetite depressants, initial encounter, Z68.35 - Body mass index [BMI] 35.0-35.9, adult Discontinued phentermine must administer 2 hours after breakfast Discontinued Reason: Patient no longer taking 15 mg PO DAILY 30 days 30 caps 0RF E11.9 - Type 2 diabetes mellitus without complications, Z68.35 - Body mass index [BMI] 35.0-35.9, adult
== END 2025-03-15 11:46 | disposition home or self-care (01) ==
LOC: HO.HMCC 08:28
PROVIDERS: PCP Internal Medicine; Visit Provider Internal Medicine
DX: E11.9 Type 2 diabetes mellitus without complications (principal); E66.812 Obesity, class 2; Z68.35 Body mass index [BMI] 35.0-35.9, adult; T50.5X5A Adverse effect of appetite depressants, initial encounter